=== PATIENT | male | born 1940 | race Caucasian/White ===

== ENCOUNTER 2016-04-25 18:51 | Observation (INO) ==
--- NOTE | 2016-04-25 19:39 | Emergency Department Note ---
Disposition Clinical Impression: Cerebrovascular accident Qualifiers: CVA mechanism: other Qualified Code(s): I63.8 - Other cerebral infarction Disposition: Admitted As Inpatient Condition: Good Forms: ED Satisfaction Letter Neuro HPI - General Chief Complaint: ED Neuro Symptoms/Deficit Stated Complaint: Neuro symptoms Time Seen by Provider: 04/25/16 18:58 Source: patient, family Limitations: no limitations Nursing Notes Reviewed: Yes Vital Signs Reviewed: Yes - History of Present Illness HPI Narrative: Patient returns for reevaluation after visit yesterday. states that yesterday morning he woke up with slurred speech and facial droop and falling to the left side. She states it will not morning so she brought him to the emergency department around 2 PM yesterday. She states that he was worked up and the attending physician offered admission at that time but he declined stating that he like to go home. She brings him back again today due to his symptoms continuing. She states that she feels that he falls to one side and so trouble with ambulation. She also feels that his mental status appears to be unusual per her report. There is no prior history of similar symptoms prior to this past few days. She does note that about 3-4 days prior to developing a facial droop he had some dizziness. There was no primary care physician follow- up for these symptoms. - Related Data Home Medications: Home Medications Medication Instructions Recorded Confirmed Amlodipine Besylate 2.5 mg PO DAILY 07/18/15 07/18/15 Aspirin 325 mg PO DAILY 07/18/15 07/18/15 Atorvastatin [Lipitor] 80 mg PO HS 07/18/15 07/18/15 Carbidopa/Levodopa 25/100 [Sinemet 0.5 each PO QID 07/18/15 07/18/15 25/100] Carvedilol [Coreg] 12.5 mg PO BID 07/18/15 07/18/15 Cholecalciferol (Vitamin D3) 2,000 unit PO DAILY 07/18/15 07/18/15 [Vitamin D3] Clopidogrel Bisulfate [Plavix] 75 mg PO DAILY 07/18/15 07/18/15 Furosemide [Lasix] 40 mg PO QAM 07/18/15 07/18/15 GuaiFENesin Liq [Robitussin Liq] 200 mg PO Q6HR PRN 07/18/15 07/18/15 Insulin Glargine [Lantus] 30 unit SQ QAM AND QHS 07/18/15 07/18/15 Lisinopril [Zestril] 5 mg PO DAILY 07/18/15 07/18/15 Potassium Chloride [Y] 10 meq PO QAM 07/18/15 07/18/15 Tamsulosin HCl [Flomax] 0.4 mg PO DAILY 07/18/15 07/18/15 Trihexyphenidyl [Artane] 07/18/15 Previous Rx's Medication Instructions Recorded Isosorbide MONOnitrate (24 HR) 240 mg PO DAILY #30 tab.er.24h 07/20/15 [Imdur] Allergies/Adverse Reactions: Allergies Allergy/AdvReac Type Severity Reaction Status Date / Time bupropion Allergy See Verified 07/18/15 22:27 Comments finasteride Allergy See Verified 07/18/15 22:27 Comments morphine Allergy See Verified 07/18/15 22:27 Comments oxybutynin Allergy See Verified 07/18/15 22:27 Comments Terazosin Allergy See Verified 07/18/15 22:27 Comments tramadol Allergy See Verified 07/18/15 22:27 Comments All systems ED: reviewed and negative except as stated. Past Medical History - Past Medical History Source: patient, obtained from family Medical history: Reports: CHF, COPD, coronary artery disease, diabetes, GERD, hyperlipidemia, hypertension, myocardial infarction, renal disease, TIA Surgical history: Reports: coronary bypass (CABG) Psychiatric history: Reports: no psych history - Social History Smoking Status: Never smoker Smokeless Tobacco Status: No Alcohol use: Reports: none Drug use: Reports: none Physical Exam - General Limitations: no limitations General appearance: alert - Head Head exam: atraumatic, normocephalic, normal inspection - Eye Eye exam: Present: normal appearance, PERRL, EOMI - ENT ENT exam: normal exam, normal oropharynx, mucous membranes moist - Neck Neck exam: Present: normal inspection, full ROM, trachea midline - Chest Chest inspection: Present: normal inspection, symmetric chest wall rise - Respiratory Respiratory exam: Present: normal lung sounds bilaterally - Cardiovascular Cardiovascular exam: Present: regular rate, normal rhythm, normal heart sounds - Abdominal Exam Abdominal exam: Present: soft, Non-Tender. Absent: tenderness, distention, guarding, rebound, rigidity - Extremities Exam Extremities exam: Present: normal inspection, full ROM. Absent: tenderness, pedal edema - Neurological Exam Neurological exam: Present: alert, oriented X3, other (Decreased sensation in the distribution of V1 V2 and V3 on the left side. Decreased sensation and spinal nerves related to C5 ) - Psychiatric Psychiatric exam: Present: normal affect, normal mood - Skin Skin exam: Present: warm, dry, intact, normal color Course Vital Signs Temperature 97.7 F 04/25/16 18:52 Pulse Rate 48 04/25/16 18:52 Respiratory Rate 18 04/25/16 18:52 Blood Pressure 151/61 04/25/16 18:52 O2 Sat by Pulse Oximetry 98 04/25/16 18:52 Temperature 97.7 F 04/25/16 18:52 Pulse Rate 72 04/25/16 20:16 Respiratory Rate 22 04/25/16 19:29 Blood Pressure 122/74 04/25/16 20:16 O2 Sat by Pulse Oximetry 97 04/25/16 20:16 Oxygen Delivery Oxygen Delivery Room Air Neuro Symptoms/Deficit - Differential Diagnosis Likely: cerebrovascular accident, subarachnoid hemorrhage, transient cerebral ischemia, convulsions - Lab Data Lab results reviewed: Yes I reviewed the patient's lab results. Result diagrams: 04/25/16 19:56 04/25/16 19:56 Lab Results 04/25/16 04/25/16 04/25/16 Range/Units 19:56 19:56 19:56 WBC 6.8 (4.3-11.1) K/mcL RBC 4.61 (4.19-5.50) M/mcL Hgb 13.5 (12.9-16.9) g/dL Hct 42.3 (37.5-50.1) % MCV 91.8 (83.0-100.0) fL MCH 29.3 (28.0-33.3) pg MCHC 31.9 (31.6-35.5) g/dL RDW 13.8 (11.5-14.5) % Plt Count 113 L (140-400) K/mcL MPV 11.3 (9.4-12.4) fL Immature Gran % 0.3 (0-4) % Seg Neutrophils % 64.9 % Lymphocytes % 22.3 % Monocytes % 8.7 % Eosinophils % 3.5 % Basophils % 0.3 % Neutrophils # 4.4 (1.6-8.9) K/mcL Lymphocytes # 1.5 (0.6-4.6) K/mcL Monocytes # 0.6 (0.0-1.3) K/mcL Eosinophils # 0.2 (0.0-0.6) K/mcL Basophils # 0.0 (0.0-0.2) K/mcL Sodium 139 (136-145) mEq/L Potassium 4.5 (3.5-4.5) mEq/L Chloride 108 (98-109) mEq/L Carbon Dioxide 23 (19-29) mEq/L BUN 29 H (8-26) mg/dL Creatinine 1.48 H (0.72-1.25) mg/dL Est GFR ( Amer) 56 L (> 60) Est GFR (Non-Af Amer) 47 L (> 60) BUN/Creatinine Ratio 20 (6-26) Glucose 258 H (70-99) mg/dL Calculated Osmolality 303 H (280-300) Calcium 8.5 L (8.6-10.8) mg/dL Total Bilirubin 0.5 (0.2-1.2) mg/dL AST 11 (5-34) Units/L ALT 13 (0-55) Units/L Alkaline Phosphatase 109 (38-126) Units/L Troponin I 0.01 (0-0.03) ng/mL Serum Total Protein 6.6 (6.0-8.3) g/dL Albumin 3.5 (3.5-5.0) g/dL Globulin 3.1 (2.4-3.5) g/dL Albumin/Globulin Ratio 1.1 (1.1-2.2) TPA Checklist - LKW: 3-4.5 hrs Add. Contraindications Patient/family understanding: The patient/family members have been counseled and understood the risk, benefit , and alternatives of treatment. Critical Care Time Total Critical Care Time: 30 Attestation: Critical care performed: Time is exclusive of separately billable procedures. Time includes: direct patient care, patient reassessment, coordination of patient care, interpretation of data (laboratory data, radiology data, and respiratory data), review of patient's medical records, medical consultation and documentation of patient care. Procedures included in critical care time: Procedures excluded from critical care time:
[2016-04-25 20:02] LABS: Basophils % 0.3 %; Eosinophils # 0.2 K/mcL (0.0-0.6); Eosinophils % 3.5 %; Hematocrit 42.3 % (37.5-50.1); Hemoglobin 13.5 g/dL (12.9-16.9); Immature Granulocytes % 0.3 % (0-4); Lymphocytes # 1.5 K/mcL (0.6-4.6); Lymphocytes % 22.3 %; Mean Corpuscular HGB Conc 31.9 g/dL (31.6-35.5); Mean Corpuscular Hemoglobin 29.3 pg (28.0-33.3); Mean Corpuscular Volume 91.8 fL (83.0-100.0); Mean Platelet Volume 11.3 fL (9.4-12.4); Monocytes # 0.6 K/mcL (0.0-1.3); Monocytes % 8.7 %; Neutrophils # 4.4 K/mcL (1.6-8.9); Platelet Count 113 K/mcL (140-400); Red Blood Count 4.61 M/mcL (4.19-5.50); Red Cell Distribution Width 13.8 % (11.5-14.5); Segmented Neutrophils % 64.9 %
[2016-04-25 20:17] LABS: Albumin 3.5 g/dL (3.5-5.0); Albumin/Globulin Ratio 1.1 (1.1-2.2); Bilirubin,Total 0.5 mg/dL (0.2-1.2); Calcium 8.5 mg/dL (8.6-10.8); Globulin 3.1 g/dL (2.4-3.5); Potassium 4.5 mEq/L (3.5-4.5); Total Protein 6.6 g/dL (6.0-8.3)
[2016-04-25] MEDS ORDERED: Naloxone 0.4 MG/ML INJ IVP PRN (20:25)
[2016-04-25] MEDS ORDERED: Ondansetron 4 MG/2 ML VIAL IVP PRN (20:25)
[2016-04-25] MEDS ORDERED: Acetaminophen 325 MG TABLET PO PRN (20:25)
--- NOTE | 2016-04-25 20:34 | Internal Med History&Physical ---
Date of Encounter: 04/25/16 Time of Encounter: 20:29 Assessment and Plan (1) TIA (transient ischemic attack) Current visit: No Status: Acute Two episodes, currently back to baseline neuro status. He has difficulty explaining things, but his states this is at baseline. - MRI tomorrow - plan for open MRI if available - in not available will need anxiolytic medications - Neurology consulted - Carotids - TTE Qualifiers: Transient cerebral ischemia type: unspecified Qualified Code(s): G45.9 - Transient cerebral ischemic attack, unspecified (2) CAD (coronary artery disease) Current visit: Yes Status: Acute Patient denies chest pain. - Continue home cards meds - Telemetry Qualifiers: Coronary Disease-Associated Artery/Lesion type: [place] artery [place] vs. transplanted heart: [place] heart Associated angina: without angina Qualified Code(s): I25.10 - Atherosclerotic heart disease of [place] coronary artery without angina pectoris (3) HTN (hypertension) Current visit: No Status: Chronic BP stable. - Continue home meds Qualifiers: Hypertension type: essential hypertension Qualified Code(s): I10 - Essential (primary) hypertension (4) COPD (chronic obstructive pulmonary disease) Current visit: No Status: Chronic Breathing at baseline - Continue home meds Qualifiers: COPD type: emphysema Emphysema type: unspecified Qualified Code(s): J43.9 - Emphysema, unspecified (5) Diabetes Current visit: No Status: Chronic Continue home lantus - Add SSI Qualifiers: Diabetes mellitus type: type 2 Diabetes mellitus complication status: with unspecified complications Diabetes mellitus ferry terminal agent insulin use: unspecified ferry terminal agent insulin use status Qualified Code(s): E11.8 - Type 2 diabetes mellitus with unspecified complications (6) CKD (chronic kidney disease) Current visit: No Status: Chronic Creatinine at baseline - Avoid nephrotoxins Qualifiers: Chronic kidney disease stage: unspecified stage Qualified Code(s): N18.9 - Chronic kidney disease, unspecified Internal Medicine - H&P: HPI Chief complaint: Slurred speech, left sided weakness Admitted From: Emergency Dept Plans for Post Hospital Care: Home History of present illness: Mr. Monzon is a 75 year old male with history of CAD, systolic CHF, Parkinson' s disease, who presented to the ER this evening because of slurred speech and patient slumping to the left while sitting. His is present and provides much of the history, as the patient suffers from some degree of dementia which has not acutely worsened. She states that yesterday around noon he developed slurred speech and slumped to the side while sitting. The symptoms lasted 30 minutes and then completely resolved. He was brought to the ER for evaluation and it was recommended that he stay in the hospital and receive further stroke workup, however the patient refused admission and went home with his . Today around 1600 he again developed slurred speech and slumped to the left side in the car, but his symptoms resolved after a couple of minutes this time. He was worried and asked his to bring him back to the ER for further evaluation. He denies chest pain or shortness of breath. He has not had fever or chills. He states that his left knee hurts chronically, which makes that leg a little weaker than the right. He has history of severe PTSD from [place] and states that he can only have an MRI if it is an "open" MRI. Past Med Surg Social Fam HX - Past Medical History Medical history: CHF (EF 45% 07/2015), COPD, coronary artery disease, diabetes, GERD, hyperlipidemia, hypertension, myocardial infarction, renal disease, TIA, other (Parkinson's disease) Psychiatric history: PTSD - Past Surgical History Surgical History: coronary bypass (CABG) - Social History Smoking Status: Never smoker Smokeless Tobacco Status: No Alcohol use: none Drug use: none - Family History Mother Family Member Ethnicity: Non- Living Status: Hx Family Cardiac Disorders: No Hx Family Respiratory Disorders: No Hx Family Cancer: Yes Hx Family GI Disorders: Yes Hx Family Endocrine Disorder: No Hx Family Neuromuscular Disorders: No Hx Family Neurologic Disorders: No Hx Family HEENT Disorders: No Hx Family Autoimmune Disorders: No Internal Medicine - H&P: Meds Amlodipine Besylate 2.5 mg PO DAILY 07/18/15 [History] Aspirin 325 mg PO DAILY 07/18/15 [History] Atorvastatin [Lipitor] 80 mg PO HS 07/18/15 [History] Carbidopa/Levodopa 25/100 [Sinemet 25/100] 0.5 each PO QID 07/18/15 [History] Carvedilol [Coreg] 12.5 mg PO BID 07/18/15 [History] Cholecalciferol (Vitamin D3) [Vitamin D3] 2,000 unit PO DAILY 07/18/15 [History] Clopidogrel Bisulfate [Plavix] 75 mg PO DAILY 07/18/15 [History] Furosemide [Lasix] 40 mg PO QAM 07/18/15 [History] GuaiFENesin Liq [Robitussin Liq] 200 mg PO Q6HR PRN 07/18/15 [History] Insulin Glargine [Lantus] 30 unit SQ QAM AND QHS 07/18/15 [History] Lisinopril [Zestril] 5 mg PO DAILY 07/18/15 [History] Potassium Chloride [Y] 10 meq PO QAM 07/18/15 [History] Tamsulosin HCl [Flomax] 0.4 mg PO DAILY 07/18/15 [History] Trihexyphenidyl [Artane] 07/18/15 [History] Isosorbide MONOnitrate (24 HR) [Imdur] 240 mg PO DAILY #30 tab.er.24h 07/20/15 [ Rx] Allergies bupropion Allergy (Verified 07/18/15 22:27) See Comments finasteride Allergy (Verified 07/18/15 22:27) See Comments morphine Allergy (Verified 07/18/15 22:27) See Comments oxybutynin Allergy (Verified 07/18/15 22:27) See Comments Terazosin Allergy (Verified 07/18/15 22:27) See Comments tramadol Allergy (Verified 07/18/15 22:27) See Comments All Systems PM: A 10-system review of systems was performed and is negative for pertinent findings except as documented above in the HPI. - Constitutional Vitals: Temp Pulse Resp BP Pulse Ox 97.7 F 72 22 122/74 97 04/25/16 18:52 04/25/16 20:16 04/25/16 19:29 04/25/16 20:16 04/25/16 20:16 General appearance: Present: A&O X 3 Exam: Patient in no acute distress, resting comfortably in bed. - Head Head exam: Present: atraumatic - Eye Eye exam: Present: EOMI, sclera anicteric - ENT ENT exam: Present: mucous membranes moist - Neck Neck exam general surgery: Present: supple - Respiratory Respiratory exam: Present: CTAB - Cardiovascular Cardiovascular exam: Present: RRR. Absent: diastolic murmur, gallop, rubs, systolic murmur - GI/Abdominal GI/Abdominal exam: Present: normal bowel sounds, soft. Absent: distended, tenderness - Extremities Exam Extremities exam: Present: pedal edema Additional comments: trace lower extremity edema bilaterally - Neurological Exam Neurological exam: Present: CN II-XII intact Additional comments: Left lower extremity with 4/5 strength to lift off bed, however patient complains of knee pain which limits his ability to lift his leg. 5/5 plantar extension and flexion. Right lower extremity with 5/5 strength throughout. Left extremities with 5/5 strength bilaterally. - Expanded Neurological Exam Patient oriented to: Present: person, place, time Speech: Absent: slurred - Psychiatric Psychiatric exam: Present: flat affect - Skin Skin exam: Absent: rash Internal Med - H&P Results - Labs CBC & Chem 7: 04/25/16 19:56 04/25/16 19:56 Labs: Short CBC 04/25/16 Range/Units 19:56 WBC 6.8 (4.3-11.1) K/mcL Hgb 13.5 (12.9-16.9) g/dL Hct 42.3 (37.5-50.1) % Plt Count 113 L (140-400) K/mcL Neutrophils # 4.4 (1.6-8.9) K/mcL BMP 04/25/16 19:56 Sodium 139 Potassium 4.5 Chloride 108 Carbon Dioxide 23 BUN 29 H Creatinine 1.48 H Glucose 258 H Calcium 8.5 L Cardiac Enzymes 04/25/16 Range/Units 19:56 Troponin I 0.01 (0-0.03) ng/mL Liver Function 04/25/16 Range/Units 19:56 Total Bilirubin 0.5 (0.2-1.2) mg/dL AST 11 (5-34) Units/L ALT 13 (0-55) Units/L Alkaline Phosphatase 109 (38-126) Units/L Albumin 3.5 (3.5-5.0) g/dL
[2016-04-25] MEDS ORDERED: D5% in Water 1,000 ML IV PRN (20:45)
[2016-04-25] MEDS ORDERED: Dextrose Gel 15 GM PO PRN ×2 (20:45)
[2016-04-25] MEDS ORDERED: *HR* Dextrose 50 % in Water (Syg) 50 ML SYRINGE IVP PRN (20:45)
[2016-04-25] MEDS: Insulin LISPRO 300 UNITS/3 ML VIAL SQ SCH (23:24)
[2016-04-26 06:11] LABS: Hematocrit 43.7 % (37.5-50.1); Hemoglobin 14.1 g/dL (12.9-16.9); Mean Corpuscular HGB Conc 32.3 g/dL (31.6-35.5); Mean Corpuscular Hemoglobin 29.6 pg (28.0-33.3); Mean Corpuscular Volume 91.6 fL (83.0-100.0); Mean Platelet Volume 11.9 fL (9.4-12.4); Platelet Count 114 K/mcL (140-400); Red Blood Count 4.77 M/mcL (4.19-5.50); Red Cell Distribution Width 13.9 % (11.5-14.5)
[2016-04-26 06:28] LABS: BUN/Creatinine Ratio 21 (6-26); Blood Urea Nitrogen 24 mg/dL (8-26); Calcium 8.4 mg/dL (8.6-10.8); Carbon Dioxide 23 mEq/L (19-29); Chloride 109 mEq/L (98-109); Glucose 176 mg/dL (70-99); Osmolality,Calculated 298 (280-300); Potassium 3.9 mEq/L (3.5-4.5); Sodium 140 mEq/L (136-145); eGFR For African Americans > 60 (> 60); eGFR For Non-African Americans > 60 (> 60)
[2016-04-26] MEDS: Aspirin 325 MG TABLET PO SCH (08:08)
[2016-04-26] MEDS: Cholecalciferol (D-3) 1,000 UNIT TABLET PO SCH (08:08)
[2016-04-26] MEDS: amLODIPine 5 MG TABLET PO SCH (08:09)
[2016-04-26] MEDS: Insulin LISPRO 300 UNITS/3 ML VIAL SQ SCH ×4 (08:11→21:33)
[2016-04-26] MEDS: Furosemide 40 MG TABLET PO SCH (08:11)
[2016-04-26] MEDS ORDERED: *HR* LORazepam 2 MG/ML VIAL IVP ONE ×2 (09:21→14:34)
[2016-04-26] MEDS ORDERED: *HR* LORazepam 1 MG TABLET PO ONE (09:31)
[2016-04-26] MEDS ORDERED: *HR* LORazepam 2 MG/ML VIAL IVP STA (10:33)
--- NOTE | 2016-04-26 12:37 | Electrocardiograph Report ---
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
--- NOTE | 2016-04-26 13:10 | Electrocardiograph Report ---
[place] [address] Test Date: 2016-04-25 Pat Name: Sukhjinder Monzon Department: 103 Room: 3B Gender: M Learning Design Specialist: : 1940 Requested By: Shanda Jurado Order Number: [id number] Reading MD: Rodo Snell Measurements Intervals [place] Rate: 72 P: -46 SD: 216 QRS: -2 QRSD: 110 T: 41 QT: 385 QTc: 410 Interpretive Statements SINUS RHYTHM WITH FIRST DEGREE AV BLOCK WITH FREQUENT VENTRICULAR PREMATURE COMPLEXES INFERIOR MYOCARDIAL INFARCTION, PROBABLY OLD Electronically Signed On 04-26-2016 13:09:17 EDT by Rodo Snell
--- NOTE | 2016-04-26 15:12 | Neurology - Consult Note ---
Date of Encounter: 04/19/16 Time of Encounter: 15:04 Assessment and Plan (1) TIA (transient ischemic attack) Current Visit: No Status: Acute Patient's MR of brain showed no acute intracranial abnormality. Still agitated without an focal neurological deficits. Overall speaking, symptoms are more related to diffuse encephalopathy secondary to medical conditions such as renal insufficiency, dehydration and hyperglycemia on top of neurodegenerative disorder. he does have past history of Parkinson's disease. Renal function appears improving but mental status change may lag in terms of recovery. Complete TIA work up including echocardiography and carotid artery duplex. Rrecommend to contiue aspirin 325mg and plavix 75mg daily continue medical and supportive care. Qualifiers: Transient cerebral ischemia type: unspecified Qualified Code(s): G45.9 - Transient cerebral ischemic attack, unspecified History of Present Illness Chief complaint: weakness and faci HPI: Mr. Monzon is a 75 year old male with PMH significant for Parkinson disease, DM , CAD, ischemic cardiomyopathy, COPD, Dementia, renal insufficiency, obesity, who developed altered mental status, agitation, weakness and facial droop. Apparently he was evaluated in the ER for similar complaints and was send home and symptoms not getting better and found some facial droop and concerned for CVA. MR of brain completed and showed no acute intracranial abnormality. Patient has been agitated as well and tries to get up constantly. No focal weakness seen. Hand roll over loader are strong. Been taking aspirin 325 mg daily and plavix 75mg daily. Has history of atrial flutter but no evidence of aFib. Past Med Surg Social Fam HX - Past Medical History Medical history: CHF, COPD, coronary artery disease, diabetes, GERD, hyperlipidemia, hypertension, myocardial infarction, renal disease, TIA Psychiatric history: no psych history - Past Surgical History Surgical History: appendectomy, coronary bypass (CABG) - Social History Smoking Status: Never smoker Smokeless Tobacco Status: No Alcohol use: none Drug use: none - Family History Father Living Status: Hx Family Cardiac Disorders: Yes (DC) Mother Family Member Ethnicity: Non- Living Status: Hx Family Cardiac Disorders: No Hx Family Respiratory Disorders: No Hx Family Cancer: Yes (uterine) Hx Family GI Disorders: Yes (GERD) Hx Family Endocrine Disorder: No Hx Family Neuromuscular Disorders: No Hx Family Neurologic Disorders: No Hx Family HEENT Disorders: No Hx Family Autoimmune Disorders: No Medications and Allergies Amlodipine Besylate 2.5 mg PO DAILY 07/18/15 [History] Aspirin 325 mg PO DAILY 07/18/15 [History] Atorvastatin [Lipitor] 80 mg PO HS 07/18/15 [History] Carbidopa/Levodopa 25/100 [Sinemet 25/100] 0.5 each PO QID 07/18/15 [History] Carvedilol [Coreg] 12.5 mg PO BID 07/18/15 [History] Cholecalciferol (Vitamin D3) [Vitamin D3] 2,000 unit PO DAILY 07/18/15 [History] Clopidogrel Bisulfate [Plavix] 75 mg PO DAILY 07/18/15 [History] Furosemide [Lasix] 40 mg PO QAM 07/18/15 [History] Lisinopril [Zestril] 5 mg PO DAILY 07/18/15 [History] Potassium Chloride [Y] 10 meq PO QAM 07/18/15 [History] Tamsulosin HCl [Flomax] 0.4 mg PO DAILY 07/18/15 [History] Trihexyphenidyl [Artane] PO 07/18/15 [History] Isosorbide MONOnitrate (24 HR) [Imdur] 240 mg PO DAILY #30 tab.er.24h 07/20/15 [ Rx] Acetaminophen [Tylenol Arthritis] 650 mg PO Q6H PRN 04/26/16 [History] Loratadine [Allergy Relief] 10 mg PO DAILY 04/26/16 [History] Psyllium [Metamucil Fiber Singles Packet] 1 packet PO DAILY 04/26/16 [History] Saxagliptin HCl [Onglyza] 2.5 mg PO DAILY 04/26/16 [History] Trihexyphenidyl [Artane] 3 mg PO QAM 04/26/16 [History] Allergies bupropion Allergy (Verified 07/18/15 22:27) See Comments finasteride Allergy (Verified 07/18/15 22:27) See Comments morphine Allergy (Verified 07/18/15 22:27) See Comments oxybutynin Allergy (Verified 07/18/15 22:27) See Comments Terazosin Allergy (Verified 07/18/15 22:27) See Comments tramadol Allergy (Verified 07/18/15 22:27) See Comments All Systems: A 10-system review of systems was performed and is negative for pertinent findings except as documented above in the HPI. Physical Examination - Vital Signs Vital Signs: Initial Vital Signs Temp Pulse Resp BP Pulse Ox 97.7 F 48 18 151/61 98 04/25/16 18:52 04/25/16 18:52 04/25/16 18:52 04/25/16 18:52 04/25/16 18:52 - Constitutional General appearance: other (Acute distress but appears agitated and tries to get constantly. ) - Neurologic Sensorimotor examination: other (Grossly intact but difficult to assess due to agitation) Detailed motor examination: grossly full strength in all extremities Motor examination - right side: 5/5: deltoids, biceps, triceps, wrist flexion, wrist extension, documentation analyst, hip flexors, tibialis Anterior, quadriceps, toe extension (EHL), plantarflexion Motor examination - left side: 5/5: deltoids, biceps, triceps, wrist flexion, wrist extension, hip flexors, documentation analyst, quadriceps, tibialis Anterior, toe extension (EHL), plantarflexion Detailed sensory examination: other (Grossly intact) Posture: other (None) Reflex and gait examination: other (Gait appears shuffling and unsteady) Reflexes: Biceps: 2+, Triceps: 2+, Brachioradialis: 2+, Patella: 2+ Mental Status Examination: awake, alert, oriented to person, agitated, opens eyes to voice, opens eyes to noxious stimulation, follows simple commands ( Patient agitated but answers simple questions. Tried to get up constantly) Cranial nerve examination: PERRL, EOMI, visual hood intact (Difficulty to assess), corneal reflexes brisk symmetrically, mastication intact, no facial asymmetry is present, no dysarthria, hearing is intact symmetrically, soft palate elevates bilaterally upon phonation (Difficult to assess) Results - Laboratory Findings CBC and BMP: 04/26/16 04:42 04/26/16 04:42 Abnormal lab findings: Abnormal lab results Plt Count 114 K/mcL (140-400) L 04/26/16 04:42 Glucose 176 mg/dL (70-99) H 04/26/16 04:42 POC Glucose 179 (58-89) H 04/26/16 12:56 Calcium 8.4 mg/dL (8.6-10.8) L 04/26/16 04:42 Consult Discharge Plan - Plan [facility]errals: [facility]Primary Care Provider[facility] -
[2016-04-26] MEDS ORDERED: Haloperidol Lactate 5 MG/ML VIAL IVP PRN (15:48)
--- NOTE | 2016-04-26 17:50 | Internal Med Progress Note ---
Date of Encounter: 04/26/16 Time of Encounter: 07:30 - Assessment and plan (1) TIA (transient ischemic attack) Current Visit: No Status: Acute Assessment and plan: Patient was brought to the emergency department twice in the last 48 hours. On the first visit is stated that he woke up with slurred speech and facial droop and was falling to the left side. Symptoms had been present for about 6 hours by the time they made it to the emergency department area patient left the department AMA because he wanted to go home. He returned to the emergency department yesterday due to continuing symptoms. She feels that he falls to one side and is having trouble walking. She also said that the mental status appears to be unusual. He does have dementia. His MRI of brain and head showed no acute intracranial abnormality but it did show diffuse cerebral atrophy. The ventricles are slightly prominent relative to the sulci. Patient does not appear to have any neurological deficits such as weakness on one side or the other, slurred speech, ataxia, however he does appear to have mental status change. He has been cursing, refusing treatment, refusing to wear his monitor leads, ripping out his IV, and saying he is going to leave and walk down the middle of the highway. He did refuse his echocardiogram and carotid Dopplers. We will try to get him calmed down and labs with normal limits and attempt the testing again tomorrow. Patient was seen by Dr. Pino today and he recommends continuing 325 mg aspirin and 75 mg Plavix and continue medical and supportive care. 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 Creatinine within normal limits. We will continue to monitor labs. Avoid nephrotoxins. Qualifiers: Chronic kidney disease stage: stage 3 (moderate) Qualified Code(s): N18.3 - Chronic kidney disease, stage 3 (moderate) (3) HTN (hypertension) Current Visit: No Status: Chronic Assessment and plan: Chronic. Will continue home medications. It has been difficult to obtain vital signs today due to patient's confusion and refusals. Qualifiers: Hypertension type: essential hypertension Qualified Code(s): I10 - Essential (primary) hypertension (4) COPD (chronic obstructive pulmonary disease) Current Visit: No Status: Chronic Assessment and plan: Chronic and well controlled. Continue home medications Monitor vital signs and labs Qualifiers: COPD type: emphysema Emphysema type: unspecified Qualified Code(s): J43.9 - Emphysema, unspecified (5) Diabetes Current Visit: No Status: Chronic Assessment and plan: Chronic Continue sliding scale insulin Diabetic diet He checks before meals at bedtime Hold home antidiabetic medications A1c ordered for morning Qualifiers: Diabetes mellitus type: type 2 Diabetes mellitus complication status: with unspecified complications Diabetes mellitus shelter insulin use: unspecified shelter insulin use status Qualified Code(s): E11.8 - Type 2 diabetes mellitus with unspecified complications - Time Spent With Patient 25 - 35 minutes - Subjective Interval history: Patient visited the emergency department twice within 24 hours for slurred speech facial droop leading to the left side. Today patient appears to have some sort of encephalopathy, or worsening dementia. Patient has been cursing, refusing all kinds of care, attempting to get out of bed and wheelchair etc. saying he is going to leave. Early this morning patient told me that he was irritated because he got no sleep during the night because of all the kids in the hallway. He said that he would like to grab him by the throats and hold them until they and drop them. He told me that he was not going to get an MRI and I could take it all those people and all the coats and suits. He is alert and oriented to his name only and could not answer the year or who the president was. Did speak with his history he is a [place] that and will need a lot of sedation for a CAT scan or MRI. Patient does complete MRI, however staff has struggled with him today as he has been pulling out IVs and refusing echo and carotid Dopplers. - Constitutional Vitals: Temp Pulse Resp BP Pulse Ox 97.8 F 48 16 151/57 98 04/26/16 12:13 04/26/16 12:13 04/26/16 12:13 04/26/16 12:13 04/26/16 12:13 General appearance: Present: A&O X 2. Absent: cooperative, answers questions appropriately - Head Head exam: Present: normal inspection - Eye Eye exam: Present: normal appearance, conjuntiva pink - ENT ENT exam: Present: mucous membranes moist, normal exam - Neck Neck exam general surgery: Present: normal inspection. Absent: lymphadenopathy , tenderness - Respiratory Respiratory exam: Present: CTAB. Absent: chest wall tenderness, rales, rhonchi , stridor, wheezes - Cardiovascular Cardiovascular exam: Present: RRR, +S1, +S2 - Expanded Cardiovascular Exam Peripheral pulses: 1+: Dorsalis Pedis (L) PM, Dorsalis Pedis (R) PM - GI/Abdominal GI/Abdominal exam: Present: hypoactive bowel sounds, soft. Absent: tenderness - Extremities Exam Extremities exam: Present: normal inspection, warm, radial pulses palpable and symetrical. Absent: pedal edema, tenderness - Psychiatric Psychiatric exam: Present: agitated, anxious Internal Medicine: Result - Labs CBC & Chem 7: 04/26/16 04:42 04/26/16 04:42 Labs: Short CBC 04/26/16 Range/Units 04:42 WBC 7.6 (4.3-11.1) K/mcL Hgb 14.1 (12.9-16.9) g/dL Hct 43.7 (37.5-50.1) % Plt Count 114 L (140-400) K/mcL BMP 04/26/16 04:42 Sodium 140 Potassium 3.9 Chloride 109 Carbon Dioxide 23 BUN 24 Creatinine 1.17 Glucose 176 H Calcium 8.4 L - Impressions Impressions Brain MRI 04/26/16 10:18 IMPRESSION: No acute intracranial abnormality. Diffuse cerebral atrophy. The ventricles are slightly prominent relative to the sulci. Normal pressure hydrocephalus should be excluded on a clinical basis. D/ / 04/26/2016 11:48:46 Brigid Mulligan MD / melissa Interpreting Provider: Brigid Mulligan MD Consult Discharge Plan - Plan [facility]: [facility] [Primary Care Provider[facility] -
[2016-04-27 06:21] LABS: Basophils % 0.2 %; Eosinophils # 0.2 K/mcL (0.0-0.6); Eosinophils % 2.3 %; Hematocrit 48.3 % (37.5-50.1); Immature Granulocytes % 0.2 % (0-4); Lymphocytes # 1.4 K/mcL (0.6-4.6); Mean Corpuscular HGB Conc 32.7 g/dL (31.6-35.5); Mean Corpuscular Hemoglobin 29.3 pg (28.0-33.3); Mean Corpuscular Volume 89.6 fL (83.0-100.0); Mean Platelet Volume 11.5 fL (9.4-12.4); Monocytes # 0.7 K/mcL (0.0-1.3); Monocytes % 7.1 %; Neutrophils # 7.2 K/mcL (1.6-8.9); Platelet Count 131 K/mcL (140-400); Red Blood Count 5.39 M/mcL (4.19-5.50); Red Cell Distribution Width 13.8 % (11.5-14.5); Segmented Neutrophils % 75.2 %
[2016-04-27 06:23] LABS: Hemoglobin 15.8 g/dL (12.9-16.9)
[2016-04-27 06:33] LABS: Hemoglobin A1C 9.8 %
[2016-04-27 06:34] LABS: BUN/Creatinine Ratio 17 (6-26); Blood Urea Nitrogen 21 mg/dL (8-26); Calcium 8.9 mg/dL (8.6-10.8); Carbon Dioxide 25 mEq/L (19-29); Chloride 108 mEq/L (98-109); Glucose 177 mg/dL (70-99); Osmolality,Calculated 301 (280-300); Potassium 4.5 mEq/L (3.5-4.5); Sodium 142 mEq/L (136-145); eGFR For African Americans > 60 (> 60); eGFR For Non-African Americans 56 (> 60)
[2016-04-27 08:09] VITALS: BP 168/80
[2016-04-27] MEDS ORDERED: 0.9 % Sodium Chloride 1,000 ML IVC SCH (08:45)
--- NOTE | 2016-04-27 09:00 | ECHO - Doppler Report ---
Echo with Saline Contrast Name: Sukhjinder Monzon Date of Study: 04/26/2016 Date: 1940 Ht: 69.0 in Medical Record#: [id number] Age: 75 Wt: 189.0 lb Gender: Male BSA: 2.02 Order #: [id number] Location: [facility] Room #: 3B Reading Physician: Danitza Linn DO [facility] Nurse Practitioner: Gisell Guardado RVT, [facility] Ordering Physician: Taylor Allen MD Primary Physician: [facility] Indications: Transient Ischemic Attack Impressions: Frequent PVCs. LVEF 50-55%. There is evidence of mild diastolic dysfunction of the left ventricle. Mild-moderate increased LV wall thickness. Normal right ventricular size and function. Mild-moderate mitral regurgitation. Mild tricuspid regurgitation. Mild pulmonic regurgitation. No pulmonary hypertension. Suboptimal image quality to detect PFO with saline bubble study. Left Ventricular Wall Motion: Rest Echo Findings All wall segments showed normal motion. Findings: Study Quality * Technically sub-optimal due to clinical status. ECG Findings * Normal sinus rhythm with PVCs. Left Ventricle * Mild-moderate concentric left ventricular hypertrophy. * Mild left ventricular diastolic dysfunction. * LVEF 50-55%. * Atypical septal motion. Left Atrium * Mildly dilated left atrium. Mitral Valve * No mitral stenosis. * Mildly thickened and calcified mitral valve leaflets. * Mild-moderate mitral regurgitation. Aorta * Normally sized aortic root. Aortic Valve * Trace aortic regurgitation. * Aortic valve not well visualized. * Mild-moderate calcified aortic valve leaflets. * No aortic stenosis. Tricuspid Valve * Tricuspid valve not well visualized. * Mild tricuspid regurgitation. Pulmonic Valve * Pulmonic valve is not well visualized. * No pulmonic stenosis. * Mild pulmonic regurgitation. Pulmonary Artery * Pulmonary artery not well visualized. Right Ventricle * Normal right ventricular structure and function. Right Atrium * Normal right atrial size. Interatrial Septum * Interatrial septum not well evaluated. Pericardium * There is no pericardial effusion present. IVC * The IVC is not well evaluated. History Hypertension Diabetes Hypercholesteremia History of CAD/PTCA Myocardial Infarction Congestive Heart Failure 07-19-2015 a Previous Echo was performed. Contrast: Agitated saline 20 ml. Measurements: BP: 151/ 57 2D Normal Values IVSd: 1.40 cm 0.6 - 1.0 cm LVIDd: 4.90 cm 3.7 - 5.6 cm LVPWd: 1.50 cm 0.6 - 1.1 cm LVIDs: 3.50 cm 1.5 - 3.6 cm AO: 2.50 cm < 4.0 cm LA: 4.00 cm 2.0 - 4.0cm %FS: 28.60 cm >25 % LA volume: 50 Mitral Valve Dec Time:282.00 msec Peak E:.86 m/sec Peak A:1.00 m/sec E/A Ratio:0.9 Peak E' Lat Arnaldo:6.14 cm/s Peak E' Med Arnaldo:4.48 cm/s E/E' Lat Ratio:13.9 E/E' Med Ratio:19.1 Tricuspid Valve TV Regurg Peak Grad: 28.00mmHg TV Regurg Peak Arnaldo: 2.64m/sec Updated by Danitza Linn on 04/27/2016 8:54:27 AM electronically signed on 04/27/2016 8:56:23 AM with status of Final Wall Motion Obrien: 1=Normal, 2=Hypokinesis, 3=Akinesis, 4=Dyskinesis, 5=Aneurysmal, 6=Hyperkinetic, X=Not Visualized (Blank)=Missing
[2016-04-27] MEDS: Insulin LISPRO 300 UNITS/3 ML VIAL SQ SCH ×2 (09:02→13:03)
[2016-04-27] MEDS: Aspirin 325 MG TABLET PO SCH (09:03)
[2016-04-27] MEDS: amLODIPine 5 MG TABLET PO SCH (09:04)
[2016-04-27] MEDS: Furosemide 40 MG TABLET PO SCH (09:04)
[2016-04-27] MEDS: Cholecalciferol (D-3) 1,000 UNIT TABLET PO SCH (09:04)
[2016-04-27] MEDS ORDERED: Carbidopa/Levodopa 25/100 TABLET PO SCH (13:00)
--- NOTE | 2016-04-27 14:10 | Discharge Summary ---
Date of Encounter: 04/27/16 Time of Encounter: 10:30 - Discharge Diagnosis (1) TIA (transient ischemic attack) Priority: Primary Status: Acute Comments: Patient's MRI is negative. There is no acute infarct. The ventricles and cisternal spaces are prominent consistent with cerebral atrophy. There is no midline shift or mass effect. Patient had bilateral carotid Dopplers that show nonstenotic plaques bilaterally. His echocardiogram showed frequent PVCs, LVEF 50-55%, mild left ventricular diastolic dysfunction, normal right ventricular size and function, and no pulmonary hypertension. He is asymptomatic today. His speech is clear, he appears to answer questions appropriately, has equal strength bilaterally, and reports that he is return to baseline. He will be sent home with prescription for Plavix 75 mg by mouth daily, and aspirin 325 mg by mouth daily. These were recommended to be continued by Dr. Hoang the neurologist. Qualifiers: Transient cerebral ischemia type: unspecified Qualified Code(s): G45.9 - Transient cerebral ischemic attack, unspecified (2) CKD (chronic kidney disease) Priority: Secondary Status: Chronic Comments: Chronic. Stable. Again today creatinine is within normal limits. Qualifiers: Chronic kidney disease stage: stage 3 (moderate) Qualified Code(s): N18.3 - Chronic kidney disease, stage 3 (moderate) (3) HTN (hypertension) Priority: Secondary Status: Chronic Comments: Chronic and stable. Continue home medications. Qualifiers: Hypertension type: essential hypertension Qualified Code(s): I10 - Essential (primary) hypertension (4) COPD (chronic obstructive pulmonary disease) Priority: Secondary Status: Chronic Comments: Chronic and stable. Well controlled. Lungs are clear. Continue home medications. Qualifiers: COPD type: emphysema Emphysema type: unspecified Qualified Code(s): J43.9 - Emphysema, unspecified (5) Diabetes Priority: Secondary Status: Chronic Comments: Patient's A1c is 9.8. I did discuss with continue his home medications and diabetes education. She says they have artery done this with Heydi Garcia at [facility]. Patient to continue home medications on discharge and follow-up with primary care physician. 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 insulin use: unspecified bed bug exterminator insulin use status Qualified Code(s): E11.8 - Type 2 diabetes mellitus with unspecified complications - Discharge Medications Prescriptions: Aspirin 325 mg PO DAILY #30 tablet Clopidogrel Bisulfate [Plavix] 75 mg PO DAILY #30 tablet Home Medications: Amlodipine Besylate 2.5 mg PO DAILY 07/18/15 [History] Atorvastatin [Lipitor] 80 mg PO HS 07/18/15 [History] Carbidopa/Levodopa 25/100 [Sinemet 25/100] 0.5 tab PO QID 07/18/15 [History] Carvedilol [Coreg] 12.5 mg PO BID 07/18/15 [History] Cholecalciferol (Vitamin D3) [Vitamin D3] 2,000 unit PO DAILY 07/18/15 [History] Furosemide [Lasix] 40 mg PO QAM 07/18/15 [History] Lisinopril [Zestril] 5 mg PO DAILY 07/18/15 [History] Potassium Chloride [Y] 10 meq PO QAM 07/18/15 [History] Tamsulosin HCl [Flomax] 0.4 mg PO DAILY 07/18/15 [History] Trihexyphenidyl [Artane] 2 mg PO QPM 07/18/15 [History] Isosorbide MONOnitrate (24 HR) [Imdur] 240 mg PO DAILY #30 tab.er.24h 07/20/15 [ Rx] Acetaminophen [Tylenol Arthritis] 650 mg PO Q6H PRN 04/26/16 [History] Loratadine [Allergy Relief] 10 mg PO DAILY 04/26/16 [History] Psyllium [Metamucil Fiber Singles Packet] 1 packet PO DAILY 04/26/16 [History] Saxagliptin HCl [Onglyza] 2.5 mg PO DAILY 04/26/16 [History] Trihexyphenidyl [Artane] 3 mg PO QAM 04/26/16 [History] Aspirin 325 mg PO DAILY #30 tablet 04/27/16 [Rx] Clopidogrel Bisulfate [Plavix] 75 mg PO DAILY #30 tablet 04/27/16 [Rx] HydrALAZINE 10 mg IVP Q6HR PRN #0 vial 04/27/16 [Rx] Allergies/Adverse Reactions: Allergies bupropion Allergy (Verified 07/18/15 22:27) See Comments finasteride Allergy (Verified 07/18/15 22:27) See Comments morphine Allergy (Verified 07/18/15 22:27) See Comments oxybutynin Allergy (Verified 07/18/15 22:27) See Comments Terazosin Allergy (Verified 07/18/15 22:27) See Comments tramadol Allergy (Verified 07/18/15 22:27) See Comments Procedures/tests Complete & Pending: Procedures Performed prior 72 hours Category Date Time Status MR head/brain wo con [MR] Routine MRI 04/26/16 10:18 Draft ECG 12 lead ECG [ECG] Routine Y 04/24/16 16:11 Completed ECG 12 lead ECG [ECG] Routine Y 04/25/16 19:03 Completed EV carotid duplex imaging BI Routine Y 04/27/16 08:00 Completed EV echocardiogram Routine Y 04/26/16 07:00 Completed Date of admission: 04/25/16 20:57 [facility] Consults: 04/26/16 16:26 Consult to Auditor/Quality [CONS] Routine Reason for SW Consult: [facility] patient blue [facility] - unable to care for him at home. Newly combative behavior towards staff and after TIA Discharging clinician: Shanda Jurado Anticipated date of discharge: 04/27/16 - Patient Status Disposition: Home, Self-Care Functional capacity at discharge: independent ambulation Overall status at discharge: patient is back to baseline - Discharge Instructions Follow Up With: [facility] [Primary Care Provider] - Additional Instructions: Please follow up with your family doctor or at the [facility] within the next week. Take medications as written. Begin taking home medications when you return home. REturn to the ER if you have any problems or concerns or for any worsening condition. - Diet and Activity Activity: resume usual activities as tolerated Diet: advance to your usual diet Hospital course: Mr. Monzon is a 75 year old male who presented to the emergency room twice within a 24-hour timeframe, the first time he decided to decline admission and go home, the second time he decided to stay for admission. His reported that he was leaving to one side and appeared that he was confused and having trouble with his speech. He was admitted to the observation unit where all of his testing was negative. Carotid Dopplers show bilateral nonstenotic plaques. Echocardiogram showed frequent PVCs, LVEF 50-55%, mild left ventricular diastolic dysfunction, normal right ventricular size and function, and no pulmonary hypertension, is an aortic and mitral regurgitation. His MRI was negative as well. Yesterday testing was delayed at times due to patient's agitation and combativeness. We did have to give him Ativan to get him in to the MRI. Later in the afternoon he became agitated again and needed some Haldol. Today patient appears to be calm, quiet, and answers questions appropriately. reports that he is return to baseline. She says that she is already attempting to establish a connection with [facility]. Patient has chronic kidney disease however during this admission his renal function labs remained within normal limits. Patient had an A1c done which is slightly elevated at 9.8%. states that they found he had diabetic education and he takes his medications as prescribed. Patient is stable for discharge at this time, will be taking patient home. - Time Spent with Patient Total time spent providing and/or coordinating discharge services: Less than 30 minutes - Constitutional Vitals: Temp Pulse Resp BP Pulse Ox 97.8 F 67 22 168/80 98 04/27/16 08:05 04/27/16 08:05 04/27/16 08:05 04/27/16 08:05 04/27/16 09:05 General appearance: Present: cooperative, A&O X 2, pleasant, no acute distress. Absent: answers questions appropriately Exam: Patient does not know the year or month. - Head Head exam: Present: normal inspection - Eye Eye exam: Present: normal appearance, PERRL, conjuntiva pink - ENT ENT exam: Present: mucous membranes moist, normal exam, normal external ear exam - Neck Neck exam general surgery: Present: normal inspection. Absent: lymphadenopathy , tenderness - Respiratory Respiratory exam: Present: CTAB. Absent: respiratory distress, rhonchi, wheezes , tachypnea - Cardiovascular Cardiovascular exam: Present: RRR, +S1, +S2. Absent: diastolic murmur, systolic murmur - Expanded Cardiovascular Exam Peripheral pulses: 2+: Dorsalis Pedis (L) PM, Dorsalis Pedis (R) PM - GI/Abdominal GI/Abdominal exam: Present: normal bowel sounds, soft. Absent: hepatomegaly, tenderness - Extremities Exam Extremities exam: Present: full ROM, normal capillary refill, normal inspection , warm, radial pulses palpable and symetrical. Absent: pedal edema, tenderness - Neurological Exam Neurological exam: Present: alert, oriented X3, strengths equal and symetr throughout. Absent: no focal deficits, facial droop, speech deficit - Expanded Neurological Exam Neurological exam expanded: Absent: expressive aphasia Patient oriented to: Present: person, place Neuro motor strength exam: LUE: 4, RUE: 4, LLE: 4, RLE: 4 Coma Scale Eye Opening: Spontaneous Coma Scale Motor Response: Obeys Commands Coma Scale Verbal Response: Oriented Coma Scale Total: 15
--- NOTE | 2016-04-27 14:30 | Physician Discharge Referral ---
Home Health/Hosp Referral Info Transfer to: Home Health Provider in Charge Post Discharge: PCP - Diagnosis (1) TIA (transient ischemic attack) Priority: Primary Status: Acute (2) CKD (chronic kidney disease) Priority: Secondary Status: Chronic (3) HTN (hypertension) Priority: Secondary Status: Chronic (4) COPD (chronic obstructive pulmonary disease) Priority: Secondary Status: Chronic (5) Diabetes Priority: Secondary Status: Chronic - Respiratory Orders Smoking Cessation: Smoking cessation has been advised. For more information, call the [place] Tobacco Quit Line at 9-211-QCDJ-NOW. - Diet/Nutrition Diet/Nutrition Orders: Regular - Activity Activity Orders: Up ad alexander - Services Needed Following services are medically necessary services: Nursing, Home Health Aide - Transfer Medications Prescriptions: Aspirin 325 mg PO DAILY #30 tablet Clopidogrel Bisulfate [Plavix] 75 mg PO DAILY #30 tablet Home Medications: Amlodipine Besylate 2.5 mg PO DAILY 07/18/15 [History] Atorvastatin [Lipitor] 80 mg PO HS 07/18/15 [History] Carbidopa/Levodopa 25/100 [Sinemet 25/100] 0.5 tab PO QID 07/18/15 [History] Carvedilol [Coreg] 12.5 mg PO BID 07/18/15 [History] Cholecalciferol (Vitamin D3) [Vitamin D3] 2,000 unit PO DAILY 07/18/15 [History] Furosemide [Lasix] 40 mg PO QAM 07/18/15 [History] Lisinopril [Zestril] 5 mg PO DAILY 07/18/15 [History] Potassium Chloride [Y] 10 meq PO QAM 07/18/15 [History] Tamsulosin HCl [Flomax] 0.4 mg PO DAILY 07/18/15 [History] Trihexyphenidyl [Artane] 2 mg PO QPM 07/18/15 [History] Isosorbide MONOnitrate (24 HR) [Imdur] 240 mg PO DAILY #30 tab.er.24h 07/20/15 [ Rx] Acetaminophen [Tylenol Arthritis] 650 mg PO Q6H PRN 04/26/16 [History] Loratadine [Allergy Relief] 10 mg PO DAILY 04/26/16 [History] Psyllium [Metamucil Fiber Singles Packet] 1 packet PO DAILY 04/26/16 [History] Saxagliptin HCl [Onglyza] 2.5 mg PO DAILY 04/26/16 [History] Trihexyphenidyl [Artane] 3 mg PO QAM 04/26/16 [History] Aspirin 325 mg PO DAILY #30 tablet 04/27/16 [Rx] Clopidogrel Bisulfate [Plavix] 75 mg PO DAILY #30 tablet 04/27/16 [Rx] HydrALAZINE 10 mg IVP Q6HR PRN #0 vial 04/27/16 [Rx] Allergies/Adverse Reactions: Allergies bupropion Allergy (Verified 07/18/15 22:27) See Comments finasteride Allergy (Verified 07/18/15 22:27) See Comments morphine Allergy (Verified 07/18/15 22:27) See Comments oxybutynin Allergy (Verified 07/18/15 22:27) See Comments Terazosin Allergy (Verified 07/18/15 22:27) See Comments tramadol Allergy (Verified 07/18/15 22:27) See Comments Certification: Further, I certify that my clinical findings support that this patient is homebound (i.e. absences from home require considerable and taxing effort and are for medical reasons or baptist services or infrequently or short duration when for other reasons) because: Homebound Reason: Altered mental status requiring supervision when leaving home Attestation: My signature below is to certify that this patient is under my care and that I, or nurse practitioner, or a physician's assistant unit forester working with me, has a face-to -face encounter with this patient.
--- NOTE | 2016-04-28 11:53 | Carotid Imaging Report ---
Carotid Duplex Patient Name:Sukhjinder Monzon Order Number:[id number] Procedure Date:04/27/2016 Date:1940ge:75 yrs Gender:Male Lt BP:162 / 72 mmHg Rt.BP:168 / 80 mmHgHeart Rate: Location:[facility] Room #: [facility] Mold Insert Changer:Shanda Keller RDCS, RVT Referring MD:Taylor Allen MD washing machine assembler:[facility] Reading MD:Salomon Arnold MD Primary Indications:Syncope Risk Factors Yes/No Hypertension Yes Diabetes Yes Hypercholesterolemia Yes Hx of TIA Unknown Hx of CVA Unknown Impressions: The bilateral carotid arteries have minimal plaque throughout. Recommendations: Test completed on 04/27/2016 at 10:35:44 am. Findings Carotid Duplex: Right: There is nonstenotic plaque in the right proximal common carotid artery. There is smooth homogeneous plaque. There is nonstenotic plaque in the right mid common carotid artery. There is smooth homogeneous plaque. There is nonstenotic plaque in the right distal common carotid artery. There is smooth heterogeneous plaque. There is antegrade spectral Doppler flow patterns in the right vertebral artery. Left: There is nonstenotic plaque in the left distal common carotid artery. There is smooth heterogeneous plaque. There is nonstenotic plaque in the left bifurcation. There is smooth heterogeneous plaque. There is antegrade spectral Doppler flow patterns in the left vertebral artery. Prior Study: No prior study available for comparison. Carotid Results Right PSV EDV Assessment Proximal CCA 61 10 Non Stenotic Plaque Mid CCA 61 11 Non Stenotic Plaque Distal CCA 75 8 Non Stenotic Plaque Bifurcation 77 9 Normal Proximal ICA 68 9 Normal Mid ICA 104 18 Normal Distal ICA 51 7 Normal ECA 95 8 Normal Vertebral Artery 46 11 Antegrade Flow Left PSV EDV Assessment Proximal CCA 100 16 Normal Mid CCA 86 11 Normal Distal CCA 84 11 Non Stenotic Plaque Bifurcation 81 13 Non Stenotic Plaque Proximal ICA 88 15 Normal Mid ICA 98 21 Normal Distal ICA 85 15 Normal ECA 104 9 Normal Vertebral Artery 42 9 Antegrade Flow Ratio's Right ICA/CCA Ratio: 1.70 ICA/CCA Values: 104/61 Left ICA/CCA Ratio: 1.14 ICA/CCA Values: 98/86 Updated by Salomon Arnold MD on 04/28/2016 11:40:55 AM electronically signed on 04/28/2016 11:47:10 AM with status of Final
== END 2016-04-27 15:44 | disposition home health service (06) ==
LOC: EMEROO 18:51 → 3BNU 18:51
PROVIDERS: ADMIT Internal Medicine; ATTEND Registered Nurse

== ENCOUNTER 2016-05-05 18:02 | Inpatient (IN) ==
--- NOTE | 2016-05-05 18:18 | Emergency Department Note ---
Disposition Clinical Impression: Non-STEMI (non-ST elevated myocardial infarction) Disposition: Admitted As Inpatient Condition: Fair [facility] [Primary Care Provider[facility] - Forms: ED Satisfaction Letter Chest Pain HPI - General Chief Complaint: ED Chest Pain Stated Complaint: CP/+TROP Time Seen by Provider: 05/05/16 18:05 - History of Present Illness HPI Narrative: Patient is not able to give an adequate history secondary to his medical condition of confusion. He presents from the [facility] where he went he said because of "heart" and they did find elevated troponin and so they sent him here. I did see the patient immediately upon arrival and also spoke with the paramedics. The patient denies any current chest discomfort. No shortness of breath, fevers, vomiting however this history is unreliable secondary to the patient's chronic confusion. Social history: No smoking or alcohol. There is no family here with the patient today. - Related Data Home Medications Medication Instructions Recorded Confirmed RX: Carbidopa/Levodopa 25/100 0.5 tab PO QID 07/18/15 05/05/16 [Sinemet 25/100] RX: Cholecalciferol (Vitamin D3) 2,000 unit PO DAILY 07/18/15 05/05/16 [Vitamin D3] RX: Lisinopril [Zestril] 5 mg PO DAILY 07/18/15 05/05/16 RX: Acetaminophen [Tylenol 650 mg PO Q6H PRN 04/26/16 05/05/16 Arthritis] RX: Loratadine [Allergy Relief] 10 mg PO DAILY PRN 04/26/16 05/05/16 RX: Psyllium [Metamucil Fiber 1 packet PO DAILY 04/26/16 05/05/16 Singles Packet] RX: Saxagliptin HCl [Onglyza] 2.5 mg PO DAILY 04/26/16 05/05/16 RX: Trihexyphenidyl [Artane] 2 mg PO QAM 04/26/16 05/05/16 Chlorhexidine Gluconate [Peridex] 15 ml MM BID 05/05/16 05/05/16 Dextrose 5 % in Water [Dextrose 500 ml IV DAILY 05/05/16 05/05/16 5%-Water IV Soln] Guaifenesin [Tussin] 200 mg PO QID PRN 05/05/16 05/05/16 Insulin Human Regular [HumuLIN R] 2 - 10 unit SQ PRN PRN 05/05/16 05/05/16 Ipratropium/Albuterol Neb [Duoneb] 3 ml IH Q6HR 05/05/16 05/05/16 Isosorbide MONOnitrate [Isosorbide 240 mg PO DAILY 05/05/16 05/05/16 Mononitrate ER] Melatonin [Melatin] 3 mg PO HS 05/05/16 05/05/16 Omeprazole [PriLOSEC] 20 mg PO DAILY 05/05/16 05/05/16 RX: Budesonide 2 mg IH BID 05/05/16 05/05/16 RX: Carvedilol 12.5 mg PO BID 05/05/16 05/05/16 RX: Ferrous Sulfate 325 mg PO DAILY 05/05/16 05/05/16 RX: Heparin 5,000 unit SQ Q12HR 05/05/16 05/05/16 RX: LORazepam [Lorazepam] 0.5 mg IM Q6H PRN 05/05/16 05/05/16 RX: TraZODone 25 mg PO HS PRN 05/05/16 05/05/16 Tamsulosin [Flomax] 0.4 mg PO DAILY 05/05/16 05/05/16 Trihexyphenidyl [Artane] 1 mg PO BID 05/05/16 05/05/16 Previous Rx's Medication Instructions Recorded RX: Aspirin 325 mg PO DAILY #30 tablet 04/27/16 RX: Clopidogrel Bisulfate [Plavix] 75 mg PO DAILY #30 tablet 04/27/16 Allergies Allergy/AdvReac Type Severity Reaction Status Date / Time bupropion Allergy See Verified 07/18/15 22:27 Comments finasteride Allergy See Verified 07/18/15 22:27 Comments morphine Allergy See Verified 07/18/15 22:27 Comments oxybutynin Allergy See Verified 07/18/15 22:27 Comments Terazosin Allergy See Verified 07/18/15 22:27 Comments tramadol Allergy See Verified 07/18/15 22:27 Comments Review of Systems: Unable to obtain secondary to patient's confusion Chest Pain PMH - Past Medical History Medical history: Reports: CHF, COPD, coronary artery disease, diabetes, GERD, hyperlipidemia, hypertension, myocardial infarction, renal disease, TIA Surgical history: Reports: appendectomy, coronary bypass (CABG) Psychiatric history: Reports: no psych history - Social History Smoking Status: Never smoker Alcohol use: Reports: none Drug use: Reports: none Physical Exam CONSTITUTIONAL: Well-appearing; well-nourished; A&O X 3, in no apparent distress HEAD: Normocephalic; atraumatic EYES: PERRL, no scleral icterus NOSE: The nose is normal in appearance without rhinorrhea NECK: No JVD or distended neck veins RESP: Normal chest excursion with respiration; breath sounds clear and equal bilaterally; no wheezes, rhonchi, or rales CARD: Regular rhythm, without murmurs, rub or gallop ABD: Non-distended; non-tender, soft, without rigidity, rebound or guarding,no pulsatile mass CHEST: No pain with palpation SKIN: Normal for age and race; warm and dry without diaphoresis ; no apparent lesions EXTREMITIES: Pulses are 2 plus and equal times 4 extremities, no peripheral edema or calf muscle pain Course Course Narrative: At this time the patient is well in appearance, he does have an elevated troponin from the [place]. The patient is getting a EKG, chest x-ray, labs and will be admitted 18:18 I did go back and see the patient again will also spoke with his . The patient is chest pain-free at this time. The said he did have epigastric pain earlier when he was at the [place]. His neon tube bender is Dr. Rodriguez. I do have the hospitalist was paged for admission 19:18 - Reevaluation(s) Time: 19:18 Vital Signs Temperature 97.8 F 05/05/16 18:03 Pulse Rate 90 05/05/16 18:03 Respiratory Rate 20 05/05/16 18:03 Blood Pressure 139/80 05/05/16 18:03 O2 Sat by Pulse Oximetry 98 05/05/16 18:03 Temperature 97.8 F 05/05/16 18:03 Pulse Rate 92 05/05/16 19:06 Respiratory Rate 18 05/05/16 19:06 Blood Pressure 145/103 05/05/16 19:06 O2 Sat by Pulse Oximetry 98 05/05/16 19:06 Oxygen Delivery Oxygen Delivery Room Air Chest Pain - MDM Narrative Medical decision making narrative: Patient is admitted. I have seen him multiple times. The patient does not have any shortness of breath and does have some pulmonary congestion but no overt congestive heart failure based on his x-ray, his oxygen saturation, JVD or rales on exam. I spoke with Dr. Mederos 19:56 - Medical Records Medical records reviewed: Yes I reviewed the patient's medical records. - Lab Data Lab results reviewed: Yes I reviewed the patient's lab results. Lab Results 05/05/16 Range/Units 19:09 Troponin I 0.03 (0-0.03) ng/mL - Radiology Data Radiology results reviewed: Yes I reviewed the patient's radiology results. Chest X-Ray 05/05/16 18:28 IMPRESSION: Mildly enlarged cardiac silhouette and pulmonary vascular congestion without overt pulmonary edema. D/ / Devon Edwards MD / Devon Edwards MD Interpreting Provider: Devon Edwards MD - EKG Data EKG attestation: Yes I reviewed and interpreted this EKG. EKG shows normal: sinus rhythm Rate: normal Rhythm: NSR, PVC's T wave inversions noted in: II, aVF When compared to previous EKG there are: no significant changes Interpretation: unchanged when compared to prior tracing (date) (04/25/16 - note : bigeminy) S.B.ABonillaRBonilla - S.B.A.R. S.B.A.R. Report Given to: Dr. Rosa M Montoya Repor Time: 19:53
--- NOTE | 2016-05-05 21:45 | Internal Med History&Physical ---
Date of Encounter: 05/05/16 Time of Encounter: 21:42 Assessment and Plan (1) Elevated troponin I level Current visit: Yes Status: Acute Troponin was 0.08 at the [facility], now is 0.03. We will trend every 6 hours. Echocardiogram from July 2015 shows an ejection fraction of 45% (2) Type 2 diabetes mellitus with insulin therapy Current visit: Yes Status: Acute Start Levemir and insulin sliding scale. Check hemoglobin A1c. (3) Parkinsons disease Current visit: Yes Status: Acute Resume carbidopa levodopa. [place] fall precautions. Get PT OT. (4) Essential hypertension Current visit: Yes Status: Acute Continue with home meds. (5) Chest pain Current visit: No Status: Acute Possibly in the context of unstable angina. We will place the patient on telemetry. Trend troponin. I have reviewed the patient's medical record and found a stress test from July 2015 which was positive for ischemia. Medical records at that time he was evaluated by cardiology and found not to be a current candidate for further workup and therefore he did not have a cardiac catheterization. This point he has been admitted with an elevated troponin level of 0.08 at the [facility]. He was sent from the [facility] for evaluation of chest pain and troponin elevation. Repeat troponin here is 0.03. Possibly starting to trend down. I will trend troponins every 6 hours. If he rules out and no further workup is needed. Qualifiers: Chest pain type: precordial pain Qualified Code(s): R07.2 - Precordial pain (6) DVT prophylaxis Current visit: Yes Status: Acute Encourage early ambulation. Internal Medicine - H&P: HPI Chief complaint: Chest pain Admitted From: Emergency Dept Plans for Post Hospital Care: Home History of present illness: Mr. Monzon is a 75 year old male with past medical history significant for coronary artery disease status post CABG, mild dementia and Parkinson's disease who presented to the hospital for evaluation of chest pain. History is limited by mild dementia. He says that he started having chest pain earlier today located in the left upper chest, sharp and stabbing, severe intensity, with no aggravating or alleviating factors, associated with lightheadedness. A 10 point review of systems was attempted and but was limited by dementia Family history reviewed and found to be noncontributory. Past Med Surg Social Fam HX - Past Medical History Medical history: CHF, COPD, coronary artery disease, diabetes, GERD, hyperlipidemia, hypertension, myocardial infarction, renal disease, TIA Psychiatric history: no psych history - Past Surgical History Surgical History: appendectomy, coronary bypass (CABG) - Social History Smoking Status: Never smoker Smokeless Tobacco Status: No Alcohol use: none Drug use: none - Family History Father Living Status: Hx Family Cardiac Disorders: Yes (MA) Mother Family Member Ethnicity: Non- Living Status: Hx Family Cardiac Disorders: No Hx Family Respiratory Disorders: No Hx Family Cancer: Yes (uterine) Hx Family GI Disorders: Yes (GERD) Hx Family Endocrine Disorder: No Hx Family Neuromuscular Disorders: No Hx Family Neurologic Disorders: No Hx Family HEENT Disorders: No Hx Family Autoimmune Disorders: No Internal Medicine - H&P: Meds Carbidopa/Levodopa 25/100 [Sinemet 25/100] 0.5 tab PO QID 07/18/15 [History] Cholecalciferol (Vitamin D3) [Vitamin D3] 2,000 unit PO DAILY 07/18/15 [History] Lisinopril [Zestril] 5 mg PO DAILY 07/18/15 [History] Acetaminophen [Tylenol Arthritis] 650 mg PO Q6H PRN 04/26/16 [History] Loratadine [Allergy Relief] 10 mg PO DAILY PRN 04/26/16 [History] Psyllium [Metamucil Fiber Singles Packet] 1 packet PO DAILY 04/26/16 [History] Saxagliptin HCl [Onglyza] 2.5 mg PO DAILY 04/26/16 [History] Trihexyphenidyl [Artane] 2 mg PO QAM 04/26/16 [History] Aspirin 325 mg PO DAILY #30 tablet 04/27/16 [Rx] Clopidogrel Bisulfate [Plavix] 75 mg PO DAILY #30 tablet 04/27/16 [Rx] Budesonide 2 mg IH BID 05/05/16 [History] Carvedilol 12.5 mg PO BID 05/05/16 [History] Chlorhexidine Gluconate [Peridex] 15 ml MM BID 05/05/16 [History] Dextrose 5 % in Water [Dextrose 5%-Water IV Soln] 500 ml IV DAILY 05/05/16 [ History] Ferrous Sulfate 325 mg PO DAILY 05/05/16 [History] Guaifenesin [Tussin] 200 mg PO QID PRN 05/05/16 [History] Heparin 5,000 unit SQ Q12HR 05/05/16 [History] Insulin Human Regular [HumuLIN R] 2 - 10 unit SQ PRN PRN 05/05/16 [History] Ipratropium/Albuterol Neb [Duoneb] 3 ml IH Q6HR 05/05/16 [History] Isosorbide MONOnitrate [Isosorbide Mononitrate ER] 240 mg PO DAILY 05/05/16 [ History] LORazepam [Lorazepam] 0.5 mg IM Q6H PRN 05/05/16 [History] Melatonin [Melatin] 3 mg PO HS 05/05/16 [History] Omeprazole [PriLOSEC] 20 mg PO DAILY 05/05/16 [History] Tamsulosin [Flomax] 0.4 mg PO DAILY 05/05/16 [History] TraZODone 25 mg PO HS PRN 05/05/16 [History] Trihexyphenidyl [Artane] 1 mg PO BID 05/05/16 [History] Allergies bupropion Allergy (Verified 07/18/15 22:27) See Comments finasteride Allergy (Verified 07/18/15 22:27) See Comments morphine Allergy (Verified 07/18/15 22:27) See Comments oxybutynin Allergy (Verified 07/18/15 22:27) See Comments Terazosin Allergy (Verified 07/18/15 22:27) See Comments tramadol Allergy (Verified 07/18/15 22:27) See Comments All Systems PM: A 10-system review of systems was performed and is negative for pertinent findings except as documented above in the HPI. - Constitutional Vitals: Temp Pulse Resp BP Pulse Ox 97.8 F 92 20 118/89 98 05/05/16 18:03 05/05/16 19:06 05/05/16 20:16 05/05/16 20:16 05/05/16 19:06 General appearance: Present: A&O X 2 - Eye Eye exam: Present: PERRL, conjuntiva pink, sclera anicteric Pupils: Present: PERRL - Respiratory Respiratory exam: Present: CTAB. Absent: accessory muscle use, rales, rhonchi, wheezes - Cardiovascular Cardiovascular exam: Present: irregular rhythm, +S1, +S2. Absent: diastolic murmur, gallop, rubs, systolic murmur - GI/Abdominal GI/Abdominal exam: Present: normal bowel sounds, soft, no peritoneal signs. Absent: distended, tenderness - Extremities Exam Extremities exam: Present: warm, radial pulses palpable and symetrical. Absent : calf tenderness, cyanotic, pedal edema - Neurological Exam Neurological exam: Present: CN II-XII intact, oriented X3, no focal deficits. Absent: pronater drift, facial droop Additional comments: Parkinsonism tremors of the upper extremities. - Skin Skin exam: Present: dry, intact
[2016-05-05] MEDS ORDERED: *HR* LORazepam 2 MG/ML VIAL IM PRN (21:46)
[2016-05-05] MEDS ORDERED: Dextrose Gel 15 GM PO PRN ×2 (22:13)
[2016-05-05] MEDS ORDERED: *HR* Dextrose 50 % in Water (Syg) 50 ML SYRINGE IVP PRN (22:13)
[2016-05-05] MEDS ORDERED: D5% in Water 1,000 ML IVC PRN (22:13)
[2016-05-05] MEDS ORDERED: Naloxone 0.4 MG/ML INJ IVP PRN (22:18)
[2016-05-05] MEDS ORDERED: Acetaminophen 325 MG TABLET PO PRN (22:18)
[2016-05-05] MEDS: Carbidopa/Levodopa 25/100 TABLET PO SCH (22:35)
[2016-05-05] MEDS: Melatonin 3 MG TABLET PO SCH (22:35)
[2016-05-05] MEDS ORDERED: *HR* LORazepam 2 MG/ML VIAL IVP PRN (23:10)
[2016-05-06 01:43] LABS: Basophils % 0.4 %; Eosinophils # 0.2 K/mcL (0.0-0.6); Eosinophils % 2.3 %; Hematocrit 41.4 % (37.5-50.1); Immature Granulocytes % 0.4 % (0-4); Immature Platelets 6.2 % (1.1-6.1); Lymphocytes # 1.4 K/mcL (0.6-4.6); Lymphocytes % 16.7 %; Mean Corpuscular HGB Conc 31.4 g/dL (31.6-35.5); Mean Corpuscular Hemoglobin 29.8 pg (28.0-33.3); Mean Platelet Volume 11.7 fL (9.4-12.4); Monocytes # 0.5 K/mcL (0.0-1.3); Neutrophils # 6.2 K/mcL (1.6-8.9); Platelet Count 104 K/mcL (140-400); Red Blood Count 4.36 M/mcL (4.19-5.50); Red Cell Distribution Width 13.7 % (11.5-14.5); Segmented Neutrophils % 74.2 %
[2016-05-06 01:56] LABS: BUN/Creatinine Ratio 21 (6-26); Blood Urea Nitrogen 21 mg/dL (8-26); Calcium 8.6 mg/dL (8.6-10.8); Carbon Dioxide 22 mEq/L (19-29); Chloride 113 mEq/L (98-109); Glucose 138 mg/dL (70-99); Osmolality,Calculated 299 (280-300); Sodium 142 mEq/L (136-145); eGFR For African Americans > 60 (> 60); eGFR For Non-African Americans > 60 (> 60)
[2016-05-06 02:08] LABS: Potassium 4.1 mEq/L (3.5-4.5)
[2016-05-06] MEDS: Ipratropium/Albuterol Neb 3 ML IH SCH ×4 (04:09→22:49)
[2016-05-06] MEDS: *HR* Heparin 5,000 UNIT/ML VIAL SQ SCH ×3 (05:29→20:27)
[2016-05-06 05:46] LABS: Hemoglobin A1C 9.3 %
[2016-05-06] MEDS: Budesonide Neb 0.5 MG/2 ML IH SCH ×2 (10:03→22:49)
--- NOTE | 2016-05-06 11:28 | Internal Med Progress Note ---
<Jose Gao - Last Filed: 05/06/16 17:18> Date of Encounter: 05/06/16 Time of Encounter: 13:30 - Assessment and plan (1) TIA (transient ischemic attack) Current Visit: Yes Status: Acute Assessment and plan: - Patient's temporary unresponsiveness today is most likely TIA secondary to poor blood perfusion to brain. - CT head today found no acute intracranial abnormality. - Start atorvastatin 80 mg PO. Continue aspirin. - Closely monitor with neuro check. Qualifiers: Transient cerebral ischemia type: unspecified Qualified Code(s): G45.9 - Transient cerebral ischemic attack, unspecified (2) Elevated troponin I level Current Visit: Yes Status: Acute Assessment and plan: - Patient was transferred here for troponin 0.08 at [facility]. - Resolved as troponins remain negative (0.03 x 3 and then 0.04) during his stay here. - Last echo on 04/26/16 showed LVEF 50-55% with mild LV diastolic dysfunction. (3) CAD (coronary artery disease) Current Visit: Yes Status: Acute Assessment and plan: - S/p 3V CABG. - Continue asa, plavix, beta jaden, Imdur, statin. Qualifiers: Coronary Disease-Associated Artery/Lesion type: [place] artery [place] vs. transplanted heart: [place] heart Associated angina: without angina Qualified Code(s): I25.10 - Atherosclerotic heart disease of [place] coronary artery without angina pectoris (4) COPD (chronic obstructive pulmonary disease) Current Visit: No Status: Chronic Assessment and plan: - Continue bronchodilator. Qualifiers: COPD type: emphysema Emphysema type: unspecified Qualified Code(s): J43.9 - Emphysema, unspecified (5) Type 2 diabetes mellitus with insulin therapy Current Visit: Yes Status: Acute Assessment and plan: - Continue insulin sliding scale. (6) Parkinsons disease Current Visit: Yes Status: Acute Assessment and plan: - Appears to be mild as patient's baseline before hospitalization is able to ambulate and feed himself independently. (7) DVT prophylaxis Current Visit: Yes Status: Acute Assessment and plan: - Continue SQ heparin. (8) Goals of care, counseling/discussion Current Visit: Yes Status: Acute Assessment and plan: - Appreciate palliative care discussion with patient and his about their goal of care. - Goals are to complete rehab and return home. They don't want any invasive intervention at this time. Patient is a DNRCC-A, DNI - Subjective Interval history: Patient was seen and examined at around 10 am. Patient was somnolent but arousable to verbal stimuli at that time. Patient stated no when asking if he has any chest pain or shortness of breath. I was notifed by nurse at 1:30 pm that patient's likes to talk to me. Patient was able to eat with his feeding him 30 minutes before. Per his , patient was at hospitalized at [facility] for 4-5 days for possible storke but transferred to here last night for elevated troponin. While in the room, patient was noted to be unresponsive to verbal or pain stimuli. Medication list was reviewed and patient didn't receive any medications except heparin SQ this morning. Irregular heart beats on auscultation of chest and bedside monitor showed some PACs & PVCs. Bedside EKG was done and appears similar to prior EKG without significant ischemic change. I accompanied patient to get STAT head CT done. Right before getting head CT (~2 pm), patient becomes awake and can answer simple questions. I personally don't see any significant intracranial abnormality on imaging at the scene. Neuro exam after head CT is grossly normal without focal deficit. - Constitutional Vitals: Temp Pulse Resp BP Pulse Ox 98.3 F 73 18 145/67 97 05/06/16 07:49 05/06/16 07:49 05/06/16 10:07 05/06/16 07:49 05/06/16 10:07 General appearance: Present: A&O X 0, cooperative - Head Head exam: Present: atraumatic, normocephalic - Eye Eye exam: Present: PERRL, conjuntiva pink, sclera anicteric - Neck Neck exam general surgery: Present: supple, trachea midline. Absent: lymphadenopathy - Respiratory Respiratory exam: Present: CTAB. Absent: accessory muscle use, rales, rhonchi, wheezes - Cardiovascular Cardiovascular exam: Present: irregular rhythm, +S1, +S2. Absent: diastolic murmur, gallop, rubs, systolic murmur - GI/Abdominal GI/Abdominal exam: Present: normal bowel sounds, soft, no peritoneal signs. Absent: distended, tenderness - Extremities Exam Extremities exam: Present: warm, radial pulses palpable and symetrical. Absent : calf tenderness, cyanotic, pedal edema - Neurological Exam Neurological exam: Present: alert, CN II-XII intact, no focal deficits. Absent : pronater drift, facial droop, speech deficit - Skin Skin exam: Present: dry, intact. Absent: rash Internal Medicine: Result - Labs CBC & Chem 7: 05/06/16 01:20 05/06/16 01:20 Labs: Short CBC 05/06/16 Range/Units 01:20 WBC 8.3 (4.3-11.1) K/mcL Hgb 13.0 (12.9-16.9) g/dL Hct 41.4 (37.5-50.1) % Plt Count 104 L (140-400) K/mcL Neutrophils # 6.2 (1.6-8.9) K/mcL BMP 05/06/16 01:20 Sodium 142 Potassium 4.1 Chloride 113 H Carbon Dioxide 22 BUN 21 Creatinine 1.02 Glucose 138 H Calcium 8.6 Cardiac Enzymes 05/06/16 05/06/16 Range/Units 01:20 06:37 Troponin I 0.03 0.03 (0-0.03) ng/mL Consult Discharge Plan - Plan [facility]errals: [facility] [Primary Care Provider] - <Charlie Torres P - Last Filed: 05/06/16 17:49> Date of Encounter: 05/06/16 - Constitutional Vitals: Temp Pulse Resp BP Pulse Ox 97.2 F L 75 18 116/72 91 L 05/06/16 15:35 05/06/16 15:35 05/06/16 16:02 05/06/16 15:35 05/06/16 16:02 Internal Medicine: Result - Labs CBC & Chem 7: 05/06/16 01:20 05/06/16 01:20 Labs: Short CBC 05/06/16 Range/Units 01:20 WBC 8.3 (4.3-11.1) K/mcL Hgb 13.0 (12.9-16.9) g/dL Hct 41.4 (37.5-50.1) % Plt Count 104 L (140-400) K/mcL Neutrophils # 6.2 (1.6-8.9) K/mcL BMP 05/06/16 01:20 Sodium 142 Potassium 4.1 Chloride 113 H Carbon Dioxide 22 BUN 21 Creatinine 1.02 Glucose 138 H Calcium 8.6 Cardiac Enzymes 05/06/16 05/06/16 05/06/16 Range/Units 01:20 06:37 12:43 Troponin I 0.03 0.03 0.04 H* (0-0.03) ng/mL - Impressions Impressions Head CT 05/06/16 13:52 IMPRESSION: No acute intracranial abnormality. Underlying atrophy with remote appearing infarct or perivascular space in left basal ganglia. D/ / Luis Horton MD / Luis Horton MD Interpreting Provider: Luis Horton MD - Attending Attestation I examined this patient and my medical decision-making was reviewed with the MOTOR POLARIZER/PA/Advanced Practice Nurse/Resident Physician. I agree with the documented findings, disposition and treatment plan as described except to the extent set forth below. We will monitor patient very closely. Palliative care evaluation appreciated.
[2016-05-06] MEDS: Insulin LISPRO 300 UNITS/3 ML VIAL SQ SCH ×4 (14:27→21:27)
[2016-05-06] MEDS: Aspirin 325 MG TABLET PO SCH (14:28)
[2016-05-06] MEDS: Isosorbide MONOnitrate (24 HR) 60 MG TAB.ER.24H PO SCH (14:28)
[2016-05-06] MEDS: Carbidopa/Levodopa 25/100 TABLET PO SCH ×4 (14:29→21:27)
--- NOTE | 2016-05-06 15:20 | Palliative - Consult Note ---
Date of Encounter: 05/06/16 Time of Encounter: 14:00 - Assessment and Plan (1) Goals of care, counseling/discussion Current Visit: Yes Status: Acute Assessment and plan: Patient suffered a suspected TIA with an episode of unresponsiveness and hypotension this AM. The patient has now fully regained his baseline capacities and is alert and oriented at the time of consult. His Skylar is at his bedside and provides additional history related to his care. The patient was an inpatient at the local [facility] and his their goals of care are that he will be able to return there upon discharge for rehab. His Skylar reports that at baseline he can ambulate independently and go fishing. He does not meet hospice criteria as his EF is 45-50% without dyspnea at rest. His Parkinson's is mild and he is able to feed himself with mild dementia. Goals are to complete rehab and return home. Patient is a DNRCC-A, DNI. (2) Chest pain Current Visit: No Status: Acute Assessment and plan: Patient denies CP at present. Troponins trending down. Supportive care only. Medicine following. Qualifiers: Chest pain type: precordial pain Qualified Code(s): R07.2 - Precordial pain (3) HTN (hypertension) Current Visit: No Status: Chronic Qualifiers: Hypertension type: essential hypertension Qualified Code(s): I10 - Essential (primary) hypertension (4) CAD (coronary artery disease) Current Visit: Yes Status: Acute Qualifiers: Coronary Disease-Associated Artery/Lesion type: [place] artery [place] vs. transplanted heart: [place] heart Associated angina: without angina Qualified Code(s): I25.10 - Atherosclerotic heart disease of [place] coronary artery without angina pectoris (5) TIA (transient ischemic attack) Current Visit: Yes Status: Acute Assessment and plan: Symptoms resolved. CT head WNL Qualifiers: Transient cerebral ischemia type: unspecified Qualified Code(s): G45.9 - Transient cerebral ischemic attack, unspecified Palliative-CN HPI - Data of Consult Patient: new to practice Consult date: 05/06/16 Requesting Physician: Jose Gao [facility] - Consult Narrative Palliative Care/Comfort Measures: Palliative care Reason for consult: Goals of Care History of present illness: Mr. Monzon is a 75 year old male [facility] ([facility] with chest pain and elevated troponin level. Medical record review was completed. Dr. Gao reports that patient had suffered an episode of unresponsiveness and hypotension this AM. The staff reports that the patient could not speak, eyes were closed, and not responding to painful stimuli. Dr. Gao reports that the patient was transferred to CT scan and had a stat CT of his head completed. He reports that the patient had suffered a suspected TIA. Upon this consult, the patient is wide awake, able to communicate verbally and reports that he has no recollection of the previous episode. Patient has a history of mild dementia and Parkinson's. His Skylar is at the bedside and provides additional history. She reports that patient usually stays at home in her care but has been at the [facility] the past 5 days and was sent here to [facility] for chest pain. The patients vital signs are now stable. 82, 22, 159/70. Records indicate that past ECHO 07/19/15 reveals EF 45-50%, mild LVH, moderate distolic dysfunction. Patient had abnormal nuclear stress in July 2015 and due to his dementia and renal issues was not a candidate for invasive procedures. This consult is for [facility] planning. CC: Charlie Torres MD Past Med Surg Social Fam HX - Past Medical History Source: patient, obtained from family Medical history: CHF, COPD, coronary artery disease, diabetes, GERD, hyperlipidemia, hypertension, myocardial infarction, renal disease, TIA Psychiatric history: no psych history - Past Surgical History Surgical History: appendectomy, coronary bypass (CABG) - Social History Smoking Status: Never smoker Smokeless Tobacco Status: No Alcohol use: none Drug use: none - Family History Father Age: 65 Family Member Ethnicity: Non- Living Status: Age at : 65 Cause of : heart attack Hx Family Cardiac Disorders: Yes Hx Family Respiratory Disorders: No Hx Family Cancer: Yes (mother had uterine cancer) Hx Family GI Disorders: No Hx Family Genitourinary Disorders: No Hx Family Endocrine Disorder: Yes (diabetes) Hx Family Musculoskeletal Disorders: No Hx Family Neuromuscular Disorders: No Hx Family Neurologic Disorders: No Hx Family HEENT Disorders: No Hx Family Autoimmune Disorders: No Hx Family Reproductive Disorders: No Hx Family Psychosocial Disorders: No Mother Family Member Ethnicity: Non- Living Status: Hx Family Cardiac Disorders: No Hx Family Respiratory Disorders: No Hx Family Cancer: Yes (uterine) Hx Family GI Disorders: Yes (GERD) Hx Family Endocrine Disorder: No Hx Family Neuromuscular Disorders: No Hx Family Neurologic Disorders: No Hx Family HEENT Disorders: No Hx Family Autoimmune Disorders: No Medications and Allergies Carbidopa/Levodopa 25/100 [Sinemet 25/100] 0.5 tab PO QID 07/18/15 [History] Cholecalciferol (Vitamin D3) [Vitamin D3] 2,000 unit PO DAILY 07/18/15 [History] Lisinopril [Zestril] 5 mg PO DAILY 07/18/15 [History] Acetaminophen [Tylenol Arthritis] 650 mg PO Q6H PRN 04/26/16 [History] Loratadine [Allergy Relief] 10 mg PO DAILY PRN 04/26/16 [History] Psyllium [Metamucil Fiber Singles Packet] 1 packet PO DAILY 04/26/16 [History] Saxagliptin HCl [Onglyza] 2.5 mg PO DAILY 04/26/16 [History] Trihexyphenidyl [Artane] 2 mg PO QAM 04/26/16 [History] Aspirin 325 mg PO DAILY #30 tablet 04/27/16 [Rx] Clopidogrel Bisulfate [Plavix] 75 mg PO DAILY #30 tablet 04/27/16 [Rx] Budesonide 2 mg IH BID 05/05/16 [History] Carvedilol 12.5 mg PO BID 05/05/16 [History] Chlorhexidine Gluconate [Peridex] 15 ml MM BID 05/05/16 [History] Dextrose 5 % in Water [Dextrose 5%-Water IV Soln] 500 ml IV DAILY 05/05/16 [ History] Ferrous Sulfate 325 mg PO DAILY 05/05/16 [History] Guaifenesin [Tussin] 200 mg PO QID PRN 05/05/16 [History] Heparin 5,000 unit SQ Q12HR 05/05/16 [History] Insulin Human Regular [HumuLIN R] 2 - 10 unit SQ PRN PRN 05/05/16 [History] Ipratropium/Albuterol Neb [Duoneb] 3 ml IH Q6HR 05/05/16 [History] Isosorbide MONOnitrate [Isosorbide Mononitrate ER] 240 mg PO DAILY 05/05/16 [ History] LORazepam [Lorazepam] 0.5 mg IM Q6H PRN 05/05/16 [History] Melatonin [Melatin] 3 mg PO HS 05/05/16 [History] Omeprazole [PriLOSEC] 20 mg PO DAILY 05/05/16 [History] Tamsulosin [Flomax] 0.4 mg PO DAILY 05/05/16 [History] TraZODone 25 mg PO HS PRN 05/05/16 [History] Trihexyphenidyl [Artane] 1 mg PO BID 05/05/16 [History] Atorvastatin [Lipitor] 80 mg PO HS 05/06/16 [History] Allergies bupropion Allergy (Verified 07/18/15 22:27) See Comments finasteride Allergy (Verified 07/18/15 22:27) See Comments morphine Allergy (Verified 07/18/15 22:27) See Comments oxybutynin Allergy (Verified 07/18/15 22:27) See Comments Terazosin Allergy (Verified 07/18/15 22:27) See Comments tramadol Allergy (Verified 07/18/15 22:27) See Comments ROS unobtainable: due to mental status (Limited d/t dementia) - Constitutional Constitutional ROS PAL: fatigue - EENT Eyes: as per HPI - Cardiovascular Cardiovascular ROS: as per HPI - Respiratory Respiratory: as per HPI - Gastrointestinal Gastrointestinal: as per HPI - Genitourinary Genitourinary ROS male: as per HPI - Musculoskeletal Musculoskeletal ROS IM: muscle weakness - Neurological Neurological ROS: as per HPI - Psychiatric Psychiatric general PM: as per HPI Palliative Care-Exam - Constitutional Vitals: Temp Pulse Resp BP Pulse Ox 98.3 F 82 22 159/70 94 L 05/06/16 07:49 05/06/16 11:56 05/06/16 11:56 05/06/16 11:56 05/06/16 10:39 General appearance: Present: cooperative, no acute distress - Head Head Exam: Present: atraumatic, normal inspection, normocephalic - Eye Eye exam: Present: PERRL Pupils: Present: PERRL - ENT ENT exam: Present: mucous membranes moist - Neck Neck exam: Present: full ROM - Expanded Neck Exam Neck exam: Present: tenderness - Respiratory Respiratory exam: Present: CTAB - Cardiovascular Cardiovascular exam: Present: irregular rhythm, +S1, +S2 (Telemetry with SR with PVCs) - Expanded Cardiovascular Exam Peripheral pulses: 1+: Femoral (L) PM, Femoral (R) PM, Posterior Tibialis (L), Posterior Tibialis (R), 2+: Carotid (L) PM, Carotid (R) PM, Radial (L), Radial ( R), Dorsalis Pedis (L) PM, Dorsalis Pedis (R) PM - GI/Abdominal Exam GI/Abdominal exam: Present: normal bowel sounds - Rectal Rectal Exam: Present: deferred - exam: Present: normal inspection (voids per BSC) - Expanded Upper Extremities Exam Shoulder exam: Present: full ROM Upper Arm exam: Present: full ROM Forearm wrist exam: Present: full ROM - Expanded Lower Extremities Exam Upper Leg exam: Present: full ROM Lower Leg exam: Present: full ROM - Back Exam Back exam: Present: full ROM - Neurological Exam Neurological exam: Present: alert, oriented X3 Additional comments: Patients is oriented X 3. Family members arrived and patient able to provide positive ID. - Expanded Neurological Exam Patient oriented to: Present: person, place, time Cranial nerves: EOM's intact: Normal, gag reflex: Normal Cerebellar function: finger to nose: Normal Neuro motor strength exam: LUE: 4, RUE: 4, LLE: 4, RLE: 4 Coma Scale Eye Opening: Spontaneous Coma Scale Motor Response: Obeys Commands Coma Scale Verbal Response: Oriented Coma Scale Total: 15 - Psychiatric Psychiatric exam: Present: normal mood Additional comments: reports that patient is presenting at his baseline communication and actions. - Skin Skin exam: Present: dry, warm Internal Medicine - CN: Reslt - Labs CBC & Chem 7: 05/06/16 01:20 05/06/16 01:20 Labs: Short CBC 05/06/16 Range/Units 01:20 WBC 8.3 (4.3-11.1) K/mcL Hgb 13.0 (12.9-16.9) g/dL Hct 41.4 (37.5-50.1) % Plt Count 104 L (140-400) K/mcL Neutrophils # 6.2 (1.6-8.9) K/mcL BMP 05/06/16 01:20 Sodium 142 Potassium 4.1 Chloride 113 H Carbon Dioxide 22 BUN 21 Creatinine 1.02 Glucose 138 H Calcium 8.6 Cardiac Enzymes 05/06/16 05/06/16 05/06/16 Range/Units 01:20 06:37 12:43 Troponin I 0.03 0.03 0.04 H* (0-0.03) ng/mL - Impressions Impressions Head CT 05/06/16 13:52 IMPRESSION: No acute intracranial abnormality. Underlying atrophy with remote appearing infarct or perivascular space in left basal ganglia. D/ / Luis Horton MD / Luis Horton MD Interpreting Provider: Luis Horton MD Consult Discharge Plan - Plan Referrals: [facility] [Primary Care Provider] - Palliative Quality Palliative Quality: Screen for Code Status: Yes, Screen for Goals of Care: Yes, Screen for Pain: Yes, If Pain Regimen Started, Initiate Bowel Regimen: Yes, Screen for Nausea/Vomitting: Yes Code Status: DNRCC-A, DNI
--- NOTE | 2016-05-06 20:55 | Electrocardiograph Report ---
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
[2016-05-06] MEDS ORDERED: Insulin DETEMIR 100 UNIT/ML X5UNITS SQ SCH (21:00)
[2016-05-06] MEDS: Melatonin 3 MG TABLET PO SCH (21:26)
[2016-05-07] MEDS: Ipratropium/Albuterol Neb 3 ML IH SCH ×4 (04:24→22:42)
[2016-05-07] MEDS: *HR* Heparin 5,000 UNIT/ML VIAL SQ SCH ×3 (05:30→16:48)
[2016-05-07 06:08] LABS: Basophils % 0.3 %; Eosinophils # 0.2 K/mcL (0.0-0.6); Eosinophils % 2.8 %; Hematocrit 39.2 % (37.5-50.1); Hemoglobin 12.5 g/dL (12.9-16.9); Immature Granulocytes % 0.9 % (0-4); Lymphocytes # 1.6 K/mcL (0.6-4.6); Lymphocytes % 23.4 %; Mean Corpuscular HGB Conc 31.9 g/dL (31.6-35.5); Mean Corpuscular Hemoglobin 28.9 pg (28.0-33.3); Mean Corpuscular Volume 90.5 fL (83.0-100.0); Mean Platelet Volume 10.7 fL (9.4-12.4); Monocytes # 0.5 K/mcL (0.0-1.3); Neutrophils # 4.4 K/mcL (1.6-8.9); Platelet Count 153 K/mcL (140-400); Red Blood Count 4.33 M/mcL (4.19-5.50); Segmented Neutrophils % 64.6 %
[2016-05-07 07:23] LABS: BUN/Creatinine Ratio 17 (6-26); Blood Urea Nitrogen 19 mg/dL (8-26); Calcium 8.4 mg/dL (8.6-10.8); Carbon Dioxide 23 mEq/L (19-29); Chloride 112 mEq/L (98-109); Glucose 156 mg/dL (70-99); Osmolality,Calculated 301 (280-300); Potassium 3.8 mEq/L (3.5-4.5); Sodium 143 mEq/L (136-145); eGFR For African Americans > 60 (> 60); eGFR For Non-African Americans > 60 (> 60)
--- NOTE | 2016-05-07 08:15 | Electrocardiograph Report ---
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
[2016-05-07] MEDS: Carbidopa/Levodopa 25/100 TABLET PO SCH ×4 (08:47→22:35)
[2016-05-07] MEDS: Aspirin 325 MG TABLET PO SCH (08:47)
[2016-05-07] MEDS: Isosorbide MONOnitrate (24 HR) 60 MG TAB.ER.24H PO SCH (08:48)
[2016-05-07] MEDS: Insulin LISPRO 300 UNITS/3 ML VIAL SQ SCH ×4 (08:56→22:43)
--- NOTE | 2016-05-07 09:24 | Internal Med Progress Note ---
<Jose Gao - Last Filed: 05/07/16 14:11> Date of Encounter: 05/06/16 Time of Encounter: 08:30 - Assessment and plan (1) TIA (transient ischemic attack) Current Visit: Yes Status: Acute Assessment and plan: - Patient's < 1-hr temporary unresponsiveness on 05/06 is most likely TIA secondary to poor blood perfusion to brain. - CT head today found no acute intracranial abnormality. - Continue atorvastatin and aspirin. - Patient and his don't want invasive intervention. - Closely monitor with neuro check. Qualifiers: Transient cerebral ischemia type: unspecified Qualified Code(s): G45.9 - Transient cerebral ischemic attack, unspecified (2) Elevated troponin I level Current Visit: Yes Status: Resolved Assessment and plan: - Patient was transferred here for troponin 0.08 at [facility] inpatient. - Resolved as troponins remain negative (0.03 x 3 and then 0.04) during his stay here. - Last echo on 04/26/16 showed LVEF 50-55% with mild LV diastolic dysfunction. (3) CAD (coronary artery disease) Current Visit: Yes Status: Acute Assessment and plan: - S/p 3V CABG years ago. - Continue asa, plavix, beta jaden, Imdur, statin. Qualifiers: Coronary Disease-Associated Artery/Lesion type: [place] artery [place] vs. transplanted heart: [place] heart Associated angina: without angina Qualified Code(s): I25.10 - Atherosclerotic heart disease of [place] coronary artery without angina pectoris (4) COPD (chronic obstructive pulmonary disease) Current Visit: No Status: Chronic Assessment and plan: - Continue bronchodilator. Qualifiers: COPD type: emphysema Emphysema type: unspecified Qualified Code(s): J43.9 - Emphysema, unspecified (5) Type 2 diabetes mellitus with insulin therapy Current Visit: Yes Status: Acute Assessment and plan: - Continue insulin sliding scale and glucose monitoring. (6) Parkinsons disease Current Visit: Yes Status: Acute Assessment and plan: - Appears to be mild as patient's baseline before hospitalization is able to ambulate and feed himself independently. (7) DVT prophylaxis Current Visit: Yes Status: Acute Assessment and plan: - Continue SQ heparin. (8) Goals of care, counseling/discussion Current Visit: Yes Status: Acute Assessment and plan: - Their goals are to complete rehab and return home. They don't want any invasive intervention at this time. Patient is a DNRCC-A, DNI - Appreciate palliative care and forensic social worker assistance about placement after discharge.. - Subjective Interval history: No significant event noted overnight. Patient was seen and examined this morning. Patient is much more awake compared to yesterday. Patient denies chest pain, shortness of breath, nausea, vomiting, diarrhea, fever, chills. - Constitutional Vitals: Temp Pulse Resp BP Pulse Ox 98.2 F 73 16 117/62 95 05/07/16 07:09 05/07/16 07:09 05/07/16 07:09 05/07/16 07:09 05/07/16 07:09 General appearance: Present: cooperative, A&O X 1, pleasant, no acute distress, answers questions appropriately - Head Head exam: Present: atraumatic, normocephalic - Eye Eye exam: Present: PERRL, conjuntiva pink, sclera anicteric - Neck Neck exam general surgery: Present: supple, trachea midline. Absent: lymphadenopathy - Respiratory Respiratory exam: Present: CTAB. Absent: accessory muscle use, rales, rhonchi, wheezes - Cardiovascular Cardiovascular exam: Present: RRR, +S1, +S2. Absent: diastolic murmur, gallop, rubs, systolic murmur - GI/Abdominal GI/Abdominal exam: Present: normal bowel sounds, soft, no peritoneal signs. Absent: distended, tenderness - Extremities Exam Extremities exam: Present: warm, radial pulses palpable and symetrical. Absent : calf tenderness, cyanotic, pedal edema - Neurological Exam Neurological exam: Present: CN II-XII intact, no focal deficits. Absent: pronater drift, facial droop, speech deficit - Skin Skin exam: Present: dry, intact Internal Medicine: Result - Labs CBC & Chem 7: 05/07/16 05:08 05/07/16 06:42 Labs: Short CBC 05/07/16 Range/Units 05:08 WBC 6.8 (4.3-11.1) K/mcL Hgb 12.5 L (12.9-16.9) g/dL Hct 39.2 (37.5-50.1) % Plt Count 153 (140-400) K/mcL Neutrophils # 4.4 (1.6-8.9) K/mcL BMP 05/07/16 06:42 Sodium 143 Potassium 3.8 Chloride 112 H Carbon Dioxide 23 BUN 19 Creatinine 1.10 Glucose 156 H Calcium 8.4 L Cardiac Enzymes 05/06/16 Range/Units 12:43 Troponin I 0.04 H* (0-0.03) ng/mL - Impressions Impressions Head CT 05/06/16 13:52 IMPRESSION: No acute intracranial abnormality. Underlying atrophy with remote appearing infarct or perivascular space in left basal ganglia. D/ / Luis Horton MD / Luis Horton MD Interpreting Provider: Luis Horton MD Consult Discharge Plan - Plan Referrals: [facility] [Primary Care Provider] - <Charlie Torres P - Last Filed: 05/07/16 17:44> Date of Encounter: 05/06/16 - Constitutional Vitals: Temp Pulse Resp BP Pulse Ox 97.7 F 87 18 118/79 95 05/07/16 15:27 05/07/16 15:27 05/07/16 15:50 05/07/16 15:27 05/07/16 15:50 Internal Medicine: Result - Labs CBC & Chem 7: 05/07/16 05:08 05/07/16 06:42 Labs: Short CBC 05/07/16 Range/Units 05:08 WBC 6.8 (4.3-11.1) K/mcL Hgb 12.5 L (12.9-16.9) g/dL Hct 39.2 (37.5-50.1) % Plt Count 153 (140-400) K/mcL Neutrophils # 4.4 (1.6-8.9) K/mcL BMP 05/07/16 06:42 Sodium 143 Potassium 3.8 Chloride 112 H Carbon Dioxide 23 BUN 19 Creatinine 1.10 Glucose 156 H Calcium 8.4 L - Attending Attestation I examined this patient and my medical decision-making was reviewed with the AUTOMOTIVE SERVICE CASHIER/PA/Advanced Practice Nurse/Resident Physician. I agree with the documented findings, disposition and treatment plan as described except to the extent set forth below.
[2016-05-07] MEDS: Budesonide Neb 0.5 MG/2 ML IH SCH ×2 (11:00→22:43)
--- NOTE | 2016-05-07 13:37 | Electrocardiograph Report ---
[place] [address] Test Date: 2016-05-06 Pat Name: Sukhjinder Monzon Department: 111 Room: 2NE16 Gender: M Planning Aide: [place] : 1940 Requested By: Charlie Torres Order Number: [id number] Reading MD: Thor Jay MD Measurements Intervals [place] Rate: 95 P: [place]: 0 QRS: -1 QRSD: 114 T: 34 QT: 369 QTc: 422 Interpretive Statements SINUS RHYTHM WITH PVCS AND PACS Electronically Signed On 05-07-2016 13:35:49 EDT by Thor Jay MD
--- NOTE | 2016-05-07 13:51 | Event Note ---
Date of Encounter: 05/06/16 Time of Encounter: 13:49 Mr. Monzon is sitting in his chair with his spouse at his side. He denies needs and reports feeling "a lot better" when compared to yesterday. His spouse reports great improvement from yesterday. Goals of care are established and rn social work is following for discharge needs. Code status established. The palliative care team will sign off. Please re-consult if needed. Thank you.
[2016-05-07] MEDS: Melatonin 3 MG TABLET PO SCH (22:36)
[2016-05-08] MEDS: Ipratropium/Albuterol Neb 3 ML IH SCH ×4 (04:15→21:11)
[2016-05-08] MEDS: *HR* Heparin 5,000 UNIT/ML VIAL SQ SCH ×2 (06:39→17:00)
[2016-05-08] MEDS: Carbidopa/Levodopa 25/100 TABLET PO SCH ×4 (09:42→20:06)
[2016-05-08] MEDS: Aspirin 325 MG TABLET PO SCH (09:42)
[2016-05-08] MEDS: Insulin LISPRO 300 UNITS/3 ML VIAL SQ SCH ×4 (09:42→21:50)
[2016-05-08] MEDS: Isosorbide MONOnitrate (24 HR) 60 MG TAB.ER.24H PO SCH (09:42)
[2016-05-08] MEDS: Budesonide Neb 0.5 MG/2 ML IH SCH ×2 (11:06→21:10)
--- NOTE | 2016-05-08 14:34 | Internal Med Progress Note ---
<Jose Gao - Last Filed: 05/08/16 14:32> Date of Encounter: 05/06/16 Time of Encounter: 11:00 - Assessment and plan (1) TIA (transient ischemic attack) Current Visit: Yes Status: Acute Assessment and plan: - Patient's < 1-hr temporary unresponsiveness on 05/06 is most likely TIA secondary to poor blood perfusion to brain. - CT head today found no acute intracranial abnormality. - Continue atorvastatin and aspirin. - Patient and his don't want invasive intervention. - Closely monitor with neuro check. - Neurology consult as requested by [facility]. Qualifiers: Transient cerebral ischemia type: unspecified Qualified Code(s): G45.9 - Transient cerebral ischemic attack, unspecified (2) Elevated troponin I level Current Visit: Yes Status: Resolved Assessment and plan: - Patient was transferred here for troponin 0.08 at [facility] inpatient. - Resolved as troponins remain negative (0.03 x 3 and then 0.04) during his stay here. - Last echo on 04/26/16 showed LVEF 50-55% with mild LV diastolic dysfunction. - Cardiology consult as requested by [facility]. (3) CAD (coronary artery disease) Current Visit: Yes Status: Acute Assessment and plan: - S/p 3V CABG years ago. - Continue asa, plavix, beta jaden, Imdur, statin. Qualifiers: Coronary Disease-Associated Artery/Lesion type: [place] artery [place] vs. transplanted heart: [place] heart Associated angina: without angina Qualified Code(s): I25.10 - Atherosclerotic heart disease of [place] coronary artery without angina pectoris (4) COPD (chronic obstructive pulmonary disease) Current Visit: No Status: Chronic Assessment and plan: - Continue bronchodilator. Qualifiers: COPD type: emphysema Emphysema type: unspecified Qualified Code(s): J43.9 - Emphysema, unspecified (5) Type 2 diabetes mellitus with insulin therapy Current Visit: Yes Status: Acute Assessment and plan: - Continue insulin sliding scale and glucose monitoring. (6) Parkinsons disease Current Visit: Yes Status: Acute Assessment and plan: - Appears to be mild as patient's baseline before hospitalization is able to ambulate and feed himself independently. (7) DVT prophylaxis Current Visit: Yes Status: Acute Assessment and plan: - Continue SQ heparin. (8) Goals of care, counseling/discussion Current Visit: Yes Status: Acute Assessment and plan: - Patient and his family's goals are to complete rehab and eventually return home. They don't want any invasive intervention at this time. Patient is a DNRCC -A, DNI - Case was discussed with [facility] hospitalist Dr. Damon, who requests having cardiology and neurology consulted before transferring patient back to [facility], which is patient initial and primary care facility. - Subjective Interval history: No significant event noted overnight. Patient was seen and examined this morning. Patient is much more awake compared to yesterday. Patient denies chest pain, shortness of breath, nausea, vomiting, diarrhea, fever, chills, numbness/tingling, focal weakness. - Constitutional Vitals: Temp Pulse Resp BP Pulse Ox 97.4 F L 93 16 132/77 95 05/08/16 11:50 05/08/16 11:50 05/08/16 11:50 05/08/16 12:57 05/08/16 11:50 General appearance: Present: cooperative, A&O X 1, pleasant, no acute distress, answers questions appropriately - Head Head exam: Present: atraumatic, normocephalic - Eye Eye exam: Present: PERRL, conjuntiva pink, sclera anicteric - Neck Neck exam general surgery: Present: supple, trachea midline. Absent: lymphadenopathy - Respiratory Respiratory exam: Present: CTAB. Absent: accessory muscle use, rales, rhonchi, wheezes - Cardiovascular Cardiovascular exam: Present: RRR, +S1, +S2. Absent: diastolic murmur, gallop, rubs, systolic murmur - GI/Abdominal GI/Abdominal exam: Present: normal bowel sounds, soft, no peritoneal signs. Absent: distended, tenderness - Extremities Exam Extremities exam: Present: warm, radial pulses palpable and symetrical. Absent : calf tenderness, cyanotic, pedal edema - Neurological Exam Neurological exam: Present: CN II-XII intact, oriented X3, no focal deficits. Absent: pronater drift, facial droop, speech deficit - Skin Skin exam: Present: dry, intact. Absent: rash Internal Medicine: Result - Labs CBC & Chem 7: 05/07/16 05:08 05/07/16 06:42 Consult Discharge Plan - Plan Referrals: [facility],PCP [Primary Care Provider] - <Charlie Torres P - Last Filed: 05/08/16 17:04> Date of Encounter: 05/08/16 - Constitutional Vitals: Temp Pulse Resp BP Pulse Ox 98.5 F 72 15 145/73 95 05/08/16 15:33 05/08/16 15:33 05/08/16 15:57 05/08/16 15:33 05/08/16 15:57 Internal Medicine: Result - Labs CBC & Chem 7: 05/07/16 05:08 05/07/16 06:42 - Attending Attestation I examined this patient and my medical decision-making was reviewed with the PHARMACOVIGILANCE SPECIALIST/PA/Advanced Practice Nurse/Resident Physician. I agree with the documented findings, disposition and treatment plan as described except to the extent set forth below. [facility] recommended a neurology/cardiological opinion before transfer.
[2016-05-08] MEDS: *HR* HYDROcodone/Acet 5/325 mg TABLET PO PRN (14:40)
--- NOTE | 2016-05-08 15:08 | Neurology - Consult Note ---
Date of Encounter: 05/08/16 Time of Encounter: 15:05 Assessment and Plan (1) Parkinsons disease Current Visit: Yes Status: Acute Appears stable at present time on top of advanced dementia that could be part of his Parkinson spectrum. Transiently altered mental status ( reduced responsiveness likely secondary to encephalopathy, sleeping state which appears totally resolved. CT of head showed no acute changes. No further testing will be recommended at this time. Patient has had carotid artery duplex and other stroke work up recently. 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 He likely has MMSE score <10/30 therefore needing 24 hour supervision. Social work/placement care needed. History of Present Illness Chief complaint: Altered mental status HPI: Mr. Monzon is a 75 year old male with PMH significant for Parkinson's disease, dementia, HTN, CKD, CAD who is consulted regarding transiently reduced mental status while in the hospital. Patient was admitted to [facility] 05/05 due to symptoms of chest pain. During the hospital stay, the patient at one time was found to have reduced responsiveness lasting few hours in duration without any focal neurological deficits. He has been doing well in the last two days. Denies significant discomforts. Does have significant baseline dementia, with probably severe degree. Patient is fully awake now but does not know the year and where is he at now. Past Med Surg Social Fam HX - Past Medical History Medical history: CHF, COPD, coronary artery disease, diabetes, GERD, hyperlipidemia, hypertension, myocardial infarction, renal disease, TIA Psychiatric history: no psych history - Past Surgical History Surgical History: appendectomy, coronary bypass (CABG) - Social History Smoking Status: Never smoker Smokeless Tobacco Status: No Alcohol use: none Drug use: none - Family History Father Age: 65 Family Member Ethnicity: Non- Living Status: Age at : 65 Cause of : heart attack Hx Family Cardiac Disorders: Yes Hx Family Respiratory Disorders: No Hx Family Cancer: Yes (mother had uterine cancer) Hx Family GI Disorders: No Hx Family Genitourinary Disorders: No Hx Family Endocrine Disorder: Yes (diabetes) Hx Family Musculoskeletal Disorders: No Hx Family Neuromuscular Disorders: No Hx Family Neurologic Disorders: No Hx Family HEENT Disorders: No Hx Family Autoimmune Disorders: No Hx Family Reproductive Disorders: No Hx Family Psychosocial Disorders: No Mother Family Member Ethnicity: Non- Living Status: Hx Family Cardiac Disorders: No Hx Family Respiratory Disorders: No Hx Family Cancer: Yes (uterine) Hx Family GI Disorders: Yes (GERD) Hx Family Endocrine Disorder: No Hx Family Neuromuscular Disorders: No Hx Family Neurologic Disorders: No Hx Family HEENT Disorders: No Hx Family Autoimmune Disorders: No Medications and Allergies Carbidopa/Levodopa 25/100 [Sinemet 25/100] 0.5 tab PO QID 07/18/15 [History] Cholecalciferol (Vitamin D3) [Vitamin D3] 2,000 unit PO DAILY 07/18/15 [History] Lisinopril [Zestril] 5 mg PO DAILY 07/18/15 [History] Acetaminophen [Tylenol Arthritis] 650 mg PO Q6H PRN 04/26/16 [History] Loratadine [Allergy Relief] 10 mg PO DAILY PRN 04/26/16 [History] Psyllium [Metamucil Fiber Singles Packet] 1 packet PO DAILY 04/26/16 [History] Saxagliptin HCl [Onglyza] 2.5 mg PO DAILY 04/26/16 [History] Trihexyphenidyl [Artane] 2 mg PO QAM 04/26/16 [History] Aspirin 325 mg PO DAILY #30 tablet 04/27/16 [Rx] Clopidogrel Bisulfate [Plavix] 75 mg PO DAILY #30 tablet 04/27/16 [Rx] Budesonide 2 mg IH BID 05/05/16 [History] Carvedilol 12.5 mg PO BID 05/05/16 [History] Chlorhexidine Gluconate [Peridex] 15 ml MM BID 05/05/16 [History] Dextrose 5 % in Water [Dextrose 5%-Water IV Soln] 500 ml IV DAILY 05/05/16 [ History] Ferrous Sulfate 325 mg PO DAILY 05/05/16 [History] Guaifenesin [Tussin] 200 mg PO QID PRN 05/05/16 [History] Heparin 5,000 unit SQ Q12HR 05/05/16 [History] Insulin Human Regular [HumuLIN R] 2 - 10 unit SQ PRN PRN 05/05/16 [History] Ipratropium/Albuterol Neb [Duoneb] 3 ml IH Q6HR 05/05/16 [History] Isosorbide MONOnitrate [Isosorbide Mononitrate ER] 240 mg PO DAILY 05/05/16 [ History] LORazepam [Lorazepam] 0.5 mg IM Q6H PRN 05/05/16 [History] Melatonin [Melatin] 3 mg PO HS 05/05/16 [History] Omeprazole [PriLOSEC] 20 mg PO DAILY 05/05/16 [History] Tamsulosin [Flomax] 0.4 mg PO DAILY 05/05/16 [History] TraZODone 25 mg PO HS PRN 05/05/16 [History] Trihexyphenidyl [Artane] 1 mg PO BID 05/05/16 [History] Atorvastatin [Lipitor] 80 mg PO HS 05/06/16 [History] Allergies bupropion Allergy (Verified 07/18/15 22:27) See Comments finasteride Allergy (Verified 07/18/15 22:27) See Comments morphine Allergy (Verified 07/18/15 22:27) See Comments oxybutynin Allergy (Verified 07/18/15 22:27) See Comments Terazosin Allergy (Verified 07/18/15 22:27) See Comments tramadol Allergy (Verified 07/18/15 22:27) See Comments All Systems: A 10-system review of systems was performed and is negative for pertinent findings except as documented above in the HPI. Physical Examination - Vital Signs Vital Signs: Initial Vital Signs Temp Pulse Resp BP Pulse Ox 97.8 F 90 20 139/80 98 05/05/16 18:03 05/05/16 18:03 05/05/16 18:03 05/05/16 18:03 05/05/16 18:03 - Constitutional General appearance: comfortable, other (Patient has no acute discomforts, smile with questions and has good eye contact. ) - Neurologic Sensorimotor examination: intact (Grossly intact) Detailed motor examination: grossly full strength in all extremities (Has increased muscle tone and muscle rigidity. No rest tremors. Bradykinetic) Motor examination - right side: 5/5: deltoids, biceps, triceps, wrist flexion, wrist extension, drafter structural, hip flexors, tibialis Anterior, quadriceps, toe extension (EHL), plantarflexion Motor examination - left side: 5/5: deltoids, biceps, triceps, wrist flexion, wrist extension, hip flexors, drafter structural, quadriceps, tibialis Anterior, toe extension (EHL), plantarflexion Reflexes: Biceps: 2+, Triceps: 2+, Brachioradialis: 2+, Patella: 2+, Achilles: 2 + Mental Status Examination: awake, alert, follows commands appropriately, answers questions appropriately, no agnosia, no aphasia, no aproxia, makes eye contact, follows simple commands, demented (Patient does not know time place and MMSE is likley below 10/30) Cranial nerve examination: PERRL, EOMI, visual hood intact, corneal reflexes brisk symmetrically, sensory to face intact, mastication intact, no facial asymmetry is present, no dysarthria, hearing is intact symmetrically, soft palate elevates bilaterally upon phonation, gag reflex intact, flexes SCM and trapezius muscles symmetrically with full power, tongue protrudes midline, no atrophy or facial fasiculations present Results - Laboratory Findings CBC and BMP: 05/07/16 05:08 05/07/16 06:42 Abnormal lab findings: Abnormal lab results Hgb 12.5 g/dL (12.9-16.9) L 05/07/16 05:08 Immature Plt Fraction 6.2 % (1.1-6.1) H 05/06/16 01:20 Chloride 112 mEq/L (98-109) H 05/07/16 06:42 Glucose 156 mg/dL (70-99) H 05/07/16 06:42 POC Glucose 292 (58-89) H 05/08/16 11:46 Hemoglobin A1c 9.3 % (-5.6) H 05/06/16 01:20 Calculated Osmolality 301 (280-300) H 05/07/16 06:42 Calcium 8.4 mg/dL (8.6-10.8) L 05/07/16 06:42 Troponin I 0.04 ng/mL (0-0.03) H* 05/06/16 12:43 Consult Discharge Plan - Plan [facility]: [facility] [Primary Care Provider] -
[2016-05-08] MEDS: Melatonin 3 MG TABLET PO SCH (20:08)
[2016-05-08 23:26] LABS: BUN/Creatinine Ratio 20 (6-26); Blood Urea Nitrogen 22 mg/dL (8-26); Carbon Dioxide 22 mEq/L (19-29); Chloride 114 mEq/L (98-109); Glucose 101 mg/dL (70-99); Magnesium 2.2 mg/dL (1.6-2.6); Osmolality,Calculated 295 (280-300); Potassium 3.9 mEq/L (3.5-4.5); Sodium 141 mEq/L (136-145); eGFR For African Americans > 60 (> 60); eGFR For Non-African Americans > 60 (> 60)
[2016-05-09] MEDS: Ipratropium/Albuterol Neb 3 ML IH SCH ×4 (04:51→22:39)
[2016-05-09] MEDS: *HR* Heparin 5,000 UNIT/ML VIAL SQ SCH ×2 (05:54→19:33)
[2016-05-09] MEDS: *HR* HYDROcodone/Acet 5/325 mg TABLET PO PRN (06:14)
[2016-05-09 07:37] LABS: Basophils % 0.3 %; Eosinophils # 0.3 K/mcL (0.0-0.6); Eosinophils % 2.8 %; Hematocrit 43.1 % (37.5-50.1); Hemoglobin 13.8 g/dL (12.9-16.9); Immature Granulocytes % 0.8 % (0-4); Lymphocytes # 1.8 K/mcL (0.6-4.6); Lymphocytes % 18.5 %; Mean Corpuscular Hemoglobin 28.6 pg (28.0-33.3); Mean Corpuscular Volume 89.2 fL (83.0-100.0); Mean Platelet Volume 10.9 fL (9.4-12.4); Monocytes # 0.7 K/mcL (0.0-1.3); Monocytes % 6.8 %; Platelet Count 153 K/mcL (140-400); Red Blood Count 4.83 M/mcL (4.19-5.50); Red Cell Distribution Width 14.1 % (11.5-14.5); Segmented Neutrophils % 70.8 %
[2016-05-09 07:38] LABS: BUN/Creatinine Ratio 20 (6-26); Blood Urea Nitrogen 19 mg/dL (8-26); Calcium 8.6 mg/dL (8.6-10.8); Carbon Dioxide 18 mEq/L (19-29); Chloride 113 mEq/L (98-109); Glucose 150 mg/dL (70-99); Osmolality,Calculated 297 (280-300); Potassium 4.1 mEq/L (3.5-4.5); Sodium 141 mEq/L (136-145); eGFR For African Americans > 60 (> 60); eGFR For Non-African Americans > 60 (> 60)
[2016-05-09] MEDS: Aspirin 325 MG TABLET PO SCH (08:44)
[2016-05-09] MEDS: Isosorbide MONOnitrate (24 HR) 60 MG TAB.ER.24H PO SCH (08:44)
[2016-05-09] MEDS: Insulin LISPRO 300 UNITS/3 ML VIAL SQ SCH ×4 (08:44→20:44)
[2016-05-09] MEDS: Carbidopa/Levodopa 25/100 TABLET PO SCH ×4 (08:45→20:43)
--- NOTE | 2016-05-09 09:44 | Internal Med Progress Note ---
<Jose Gao - Last Filed: 05/09/16 10:19> Date of Encounter: 05/09/16 Time of Encounter: 09:15 - Assessment and plan (1) TIA (transient ischemic attack) Current Visit: Yes Status: Acute Assessment and plan: - Patient's < 1-hr temporary unresponsiveness on 05/06 is most likely TIA secondary to poor blood perfusion to brain. - CT head on 05/06 found no acute intracranial abnormality. - Patient has had carotid artery duplex and other stroke work up recently. - Continue atorvastatin and aspirin. - Patient and his don't want invasive intervention. - Neurology consult as requested by [facility]. No further testing will be recommended at this time per neurology - Closely monitor. Qualifiers: Transient cerebral ischemia type: unspecified Qualified Code(s): G45.9 - Transient cerebral ischemic attack, unspecified (2) Elevated troponin I level Current Visit: Yes Status: Resolved Assessment and plan: - Patient was transferred here for troponin 0.08 at [facility] inpatient. - Resolved as troponins remain negative (0.03 x 3 and then 0.04) during his stay here. - Last echo on 04/26/16 showed LVEF 50-55% with mild LV diastolic dysfunction. - Cardiology consulted as requested by [facility]. (3) CAD (coronary artery disease) Current Visit: Yes Status: Acute Assessment and plan: - S/p 3V CABG years ago. - Continue asa, plavix, beta jaden, Imdur, statin. Qualifiers: Coronary Disease-Associated Artery/Lesion type: [place] artery [place] vs. transplanted heart: [place] heart Associated angina: without angina Qualified Code(s): I25.10 - Atherosclerotic heart disease of [place] coronary artery without angina pectoris (4) COPD (chronic obstructive pulmonary disease) Current Visit: No Status: Chronic Assessment and plan: - Continue bronchodilator. Qualifiers: COPD type: emphysema Emphysema type: unspecified Qualified Code(s): J43.9 - Emphysema, unspecified (5) Type 2 diabetes mellitus with insulin therapy Current Visit: Yes Status: Acute Assessment and plan: - Continue insulin sliding scale and glucose monitoring. (6) Parkinsons disease Current Visit: Yes Status: Acute Assessment and plan: - Appears to be mild as patient's baseline before hospitalization is able to ambulate and feed himself independently. (7) DVT prophylaxis Current Visit: Yes Status: Acute Assessment and plan: - Continue SQ heparin. (8) Goals of care, counseling/discussion Current Visit: Yes Status: Acute Assessment and plan: - Patient and his family's goals are to complete rehab and eventually return home. They don't want any invasive intervention at this time. Patient is a DNRCC -A, DNI - Case was discussed with [facility] hospitalist Dr. Damon on 05/08/16, who requests having cardiology and neurology consulted before transferring patient back to [facility] , which is patient initial and primary care facility. - Subjective Interval history: No significant event noted overnight. Patient was seen and examined this morning. Patient reports doing okay and has no complaint. Patient denies chest pain, shortness of breath, nausea, vomiting, diarrhea, fever, chills, numbness/ tingling, focal weakness. - Constitutional Vitals: Temp Pulse Resp BP Pulse Ox 98.2 F 54 19 141/77 93 05/09/16 08:21 05/09/16 08:21 05/09/16 08:21 05/09/16 08:21 05/09/16 08:21 General appearance: Present: cooperative, A&O X 1, pleasant, no acute distress, answers questions appropriately - Head Head exam: Present: atraumatic, normocephalic - Eye Eye exam: Present: PERRL, conjuntiva pink, sclera anicteric - Neck Neck exam general surgery: Present: supple, trachea midline. Absent: lymphadenopathy - Respiratory Respiratory exam: Present: CTAB. Absent: accessory muscle use, rales, rhonchi, wheezes - Cardiovascular Cardiovascular exam: Present: RRR, +S1, +S2. Absent: diastolic murmur, gallop, rubs, systolic murmur - GI/Abdominal GI/Abdominal exam: Present: normal bowel sounds, soft, no peritoneal signs. Absent: distended, tenderness - Extremities Exam Extremities exam: Present: warm, radial pulses palpable and symetrical. Absent : calf tenderness, cyanotic, pedal edema - Neurological Exam Neurological exam: Present: CN II-XII intact, oriented X3, no focal deficits. Absent: pronater drift, facial droop, speech deficit - Skin Skin exam: Present: dry, intact. Absent: rash Internal Medicine: Result - Labs CBC & Chem 7: 05/09/16 06:33 05/09/16 06:33 Labs: Short CBC 05/09/16 Range/Units 06:33 WBC 9.9 (4.3-11.1) K/mcL Hgb 13.8 (12.9-16.9) g/dL Hct 43.1 (37.5-50.1) % Plt Count 153 (140-400) K/mcL Neutrophils # 7.0 (1.6-8.9) K/mcL [facility] 05/08/16 05/09/16 22:54 06:33 Sodium 141 141 Potassium 3.9 4.1 Chloride 114 H 113 H Carbon Dioxide 22 18 L BUN 22 19 Creatinine 1.08 0.97 Glucose 101 H 150 H Calcium 8.0 L 8.6 Consult Discharge Plan - Plan [facility]errals: [facility] [Primary Care Provider] - <Charlie Torres - Last Filed: 05/09/16 18:00> Date of Encounter: 05/09/16 - Constitutional Vitals: Temp Pulse Resp BP Pulse Ox 98.2 F 78 16 113/59 95 05/09/16 16:22 05/09/16 16:22 05/09/16 16:22 05/09/16 16:22 05/09/16 16:22 Internal Medicine: Result - Labs CBC & Chem 7: 05/09/16 06:33 05/09/16 06:33 Labs: Short CBC 05/09/16 Range/Units 06:33 WBC 9.9 (4.3-11.1) K/mcL Hgb 13.8 (12.9-16.9) g/dL Hct 43.1 (37.5-50.1) % Plt Count 153 (140-400) K/mcL Neutrophils # 7.0 (1.6-8.9) K/mcL [facility] 05/08/16 05/09/16 22:54 06:33 Sodium 141 141 Potassium 3.9 4.1 Chloride 114 H 113 H Carbon Dioxide 22 18 L BUN 22 19 Creatinine 1.08 0.97 Glucose 101 H 150 H Calcium 8.0 L 8.6 - Attending Attestation I examined this patient and my medical decision-making was reviewed with the CELL ATTENDANT/PA/Advanced Practice Nurse/Resident Physician. I agree with the documented findings, disposition and treatment plan as described except to the extent set forth below. Cardiology input appreciated. Possible transfer back to [facility] tomorrow
[2016-05-09] MEDS: Budesonide Neb 0.5 MG/2 ML IH SCH ×2 (10:30→22:39)
--- NOTE | 2016-05-09 14:00 | Cardiology Consult Note ---
<Anthony Perry - Last Filed: 05/09/16 14:28> Date of Encounter: 05/09/16 Time of Encounter: 13:30 Assessment and Plan (1) TIA (transient ischemic attack) Current Visit: Yes Status: Acute Per cardiology: -Probable TIA in patient with period of altered mental status. -Patient with known history of dementia and parkinsons. -Management per primary service and neurology. (CARLOS). Qualifiers: Transient cerebral ischemia type: unspecified Qualified Code(s): G45.9 - Transient cerebral ischemic attack, unspecified (2) Elevated troponin I level Current Visit: Yes Status: Resolved Per cardiology: -Elevated troponin of 0.08 at [facility]. -Troponin 0.03, 0.03, 0.03, and 0.04 at [facility]. -Troponins flat and adynamic in the setting of TIA. -Known history of CAD status post CABG. -On asa, plavix, statin, beta jaden, and yumi inhibitor. -ECG with underlying sinus rhythm with frequent PVCs. -Patient with altered mental status. -Family request no invasive testing. Of note, patient is DNR-CCA and DNI. -Do not suspect NSTEMI, suspect demand ischemia. No cardiac rehab warranted. -Will decrease ASA to 81mg po daily. -Discussed with family regarding further ischemic work up. Family agreeable to no further cardiac ischemic work up. -Cardiology will sign off and recommend patient follow up at [facility]. (CARLOS). Discussion w patient/family: The assessment and plan as outlined above was discussed with the patient and/or family members who expressed understanding and agreement. All questions were answered. Thank you for involving us in the care of your patient. Please call with any questions. Patient seen and examined with LE Pulliam Patient seen and examined with . History of Present Illness Consult date: 05/09/16 Requesting physician: Jose Gao Consult reason: positive troponin Chief complaint: altered mental status History of present illness: Mr. Monzon is a 75 year old male with a relevant past medical history of CHF, dementia, parkinson, COPD, CAD, DM, GERD, Hyperlipidemia, HTN, PA, renal disease , TIA, and CABG. Patient was at the [facility] when he had an episode of unresponsiveness. Patient was transferred to [facility]. Hospitalist team has been following patient and was preparing to discharge him back to the [facility]. According to hospitalist, [facility] requested that cardiology see patient for elevated troponin. According to family, patient never complained of chest pain. Difficult to obtain history from patient due to mental status. (CARLOS) Past Med Surg Social Fam HX - Past Medical History Source: old records reviewed, obtained from family Medical history: CHF, COPD, coronary artery disease, diabetes, GERD, hyperlipidemia, hypertension, myocardial infarction, renal disease, TIA Psychiatric history: no psych history - Past Surgical History Surgical History: appendectomy, coronary bypass (CABG) - Social History Smoking Status: Never smoker Smokeless Tobacco Status: No Alcohol use: none Drug use: none - Family History Father Age: 65 Family Member Ethnicity: Non- Living Status: Age at : 65 Cause of : heart attack Hx Family Cardiac Disorders: Yes Hx Family Respiratory Disorders: No Hx Family Cancer: Yes (mother had uterine cancer) Hx Family GI Disorders: No Hx Family Genitourinary Disorders: No Hx Family Endocrine Disorder: Yes (diabetes) Hx Family Musculoskeletal Disorders: No Hx Family Neuromuscular Disorders: No Hx Family Neurologic Disorders: No Hx Family HEENT Disorders: No Hx Family Autoimmune Disorders: No Hx Family Reproductive Disorders: No Hx Family Psychosocial Disorders: No Mother Family Member Ethnicity: Non- Living Status: Hx Family Cardiac Disorders: No Hx Family Respiratory Disorders: No Hx Family Cancer: Yes (uterine) Hx Family GI Disorders: Yes (GERD) Hx Family Endocrine Disorder: No Hx Family Neuromuscular Disorders: No Hx Family Neurologic Disorders: No Hx Family HEENT Disorders: No Hx Family Autoimmune Disorders: No Medications and Allergies Carbidopa/Levodopa 25/100 [Sinemet 25/100] 0.5 tab PO QID 07/18/15 [History] Cholecalciferol (Vitamin D3) [Vitamin D3] 2,000 unit PO DAILY 07/18/15 [History] Lisinopril [Zestril] 5 mg PO DAILY 07/18/15 [History] Acetaminophen [Tylenol Arthritis] 650 mg PO Q6H PRN 04/26/16 [History] Loratadine [Allergy Relief] 10 mg PO DAILY PRN 04/26/16 [History] Psyllium [Metamucil Fiber Singles Packet] 1 packet PO DAILY 04/26/16 [History] Saxagliptin HCl [Onglyza] 2.5 mg PO DAILY 04/26/16 [History] Trihexyphenidyl [Artane] 2 mg PO QAM 04/26/16 [History] Aspirin 325 mg PO DAILY #30 tablet 04/27/16 [Rx] Clopidogrel Bisulfate [Plavix] 75 mg PO DAILY #30 tablet 04/27/16 [Rx] Budesonide 2 mg IH BID 05/05/16 [History] Carvedilol 12.5 mg PO BID 05/05/16 [History] Chlorhexidine Gluconate [Peridex] 15 ml MM BID 05/05/16 [History] Dextrose 5 % in Water [Dextrose 5%-Water IV Soln] 500 ml IV DAILY 05/05/16 [ History] Ferrous Sulfate 325 mg PO DAILY 05/05/16 [History] Guaifenesin [Tussin] 200 mg PO QID PRN 05/05/16 [History] Heparin 5,000 unit SQ Q12HR 05/05/16 [History] Insulin Human Regular [HumuLIN R] 2 - 10 unit SQ PRN PRN 05/05/16 [History] Ipratropium/Albuterol Neb [Duoneb] 3 ml IH Q6HR 05/05/16 [History] Isosorbide MONOnitrate [Isosorbide Mononitrate ER] 240 mg PO DAILY 05/05/16 [ History] LORazepam [Lorazepam] 0.5 mg IM Q6H PRN 05/05/16 [History] Melatonin [Melatin] 3 mg PO HS 05/05/16 [History] Omeprazole [PriLOSEC] 20 mg PO DAILY 05/05/16 [History] Tamsulosin [Flomax] 0.4 mg PO DAILY 05/05/16 [History] TraZODone 25 mg PO HS PRN 05/05/16 [History] Trihexyphenidyl [Artane] 1 mg PO BID 05/05/16 [History] Atorvastatin [Lipitor] 80 mg PO HS 05/06/16 [History] Allergies bupropion Allergy (Verified 07/18/15 22:27) See Comments finasteride Allergy (Verified 07/18/15 22:27) See Comments morphine Allergy (Verified 07/18/15 22:27) See Comments oxybutynin Allergy (Verified 07/18/15 22:27) See Comments Terazosin Allergy (Verified 07/18/15 22:27) See Comments tramadol Allergy (Verified 07/18/15 22:27) See Comments ROS unobtainable: due to mental status All Systems Review: A 10-system review of systems was performed and is negative for pertinent findings except as documented above in the HPI. Physical Examination Vital Signs, Last 4 Hours Temp Pulse Resp BP Pulse Ox 05/09/16 10:56 98.0 F 77 16 111/74 95 05/09/16 10:32 16 127/83 99 General: Other (Awake. Aphasic. ) HEENT: Atraumatic, Normocephaly Neck: No JVD, Normal carotid pulses Cardiac: Other (Frequent irregular beats noted per auscultation. Systolic murmur noted. ) Lungs: Normal Breath Sounds, No Wheeze, Rales, Rhonchi Neuro: Other (ALert and awake. ) Abdomen: Soft Skin: No rashes noted on visualized skin Musculoskeletal: No Chest Wall Tenderness Extremities: No Clubbing, No Cyanosis, No Edema, Normal Pulses Results 05/09/16 06:33 05/09/16 06:33 Lab Results Active Medications Acetaminophen (Tylenol) 650 mg PO Q6HR PRN PRN Reason: Mild Pain (1-3) Stop: 11/04/16 22:19 Acetaminophen/Hydrocodone Bitart ([place] 5-325 Mg) 1 tab PO Q6HR PRN PRN Reason: Moderate Pain Stop: 11/07/16 14:32 Last Admin: 05/09/16 06:14 Dose: 1 tab Albuterol/Ipratropium (Duoneb) 3 ml IH [id number] JOSE MANUEL PRN Reason: Protocol Stop: 11/05/16 04:01 Last Admin: 05/09/16 10:30 Dose: 3 ml Aspirin (Aspirin) 325 mg PO DAILY JOSE MANUEL Stop: 11/05/16 09:01 Last Admin: 05/09/16 08:44 Dose: 325 mg Atorvastatin Calcium (Lipitor) 80 mg PO HS [facility] Stop: 11/05/16 15:07 Last Admin: 05/08/16 20:07 Dose: 80 mg Budesonide (Pulmicort Neb) 2 mg IH BIDR JOSE MANUEL Stop: 11/05/16 10:01 Last Admin: 05/09/16 10:30 Dose: 2 mg Carbidopa/Levodopa (Sinemet) 0.5 each PO QID JOSE MANUEL Stop: 11/04/16 22:01 Last Admin: 05/09/16 12:04 Dose: 0.5 each Carvedilol (Coreg) 12.5 mg PO BIDWM [facility] Stop: 11/05/16 08:01 Last Admin: 05/09/16 08:45 Dose: 12.5 mg Clopidogrel Bisulfate (Plavix) 75 mg PO DAILY [facility] Stop: 11/05/16 09:01 Last Admin: 05/09/16 08:45 Dose: 75 mg Dextrose/Water (Dextrose 50% (Syg)) 25 ml IVP AD PRN PRN Reason: Hypoglycemia Stop: 11/04/16 22:14 Glucagon (Glucagen) 1 mg IM ONCE PRN PRN Reason: Hypoglycemia Stop: 11/04/16 22:14 Glucose (Gluctose) 15 gm PO ONCE PRN PRN Reason: Hypoglycemia Stop: 11/04/16 22:14 Glucose (Gluctose) 30 gm PO ONCE PRN PRN Reason: Hypoglycemia Stop: 11/04/16 22:14 Heparin Sodium (Porcine) (Heparin) 5,000 unit SQ Q12HR [facility] Stop: 11/05/16 06:01 Last Admin: 05/09/16 05:54 Dose: Not Given Dextrose (Dextrose 5%) 1,000 mls @ 100 mls/hr IVC .Q10H PRN PRN Reason: HYPOGLYCEMIA Stop: 11/04/16 22:14 Insulin Human Lispro (Humalog) 0 units SQ TIDAC [facility] PRN Reason: Protocol Stop: 11/05/16 07:31 Last Admin: 05/09/16 12:02 Dose: 8 units Insulin Human Lispro (Humalog) 0 units SQ HS [facility] PRN Reason: Protocol Stop: 11/05/16 21:01 Last Admin: 05/08/16 21:50 Dose: Not Given Isosorbide Mononitrate (Imdur) 240 mg PO DAILY [facility] Stop: 11/05/16 09:01 Last Admin: 05/09/16 08:44 Dose: 240 mg Lisinopril (Zestril) 5 mg PO DAILY [facility] PRN Reason: Protocol Stop: 11/05/16 09:01 Last Admin: 05/09/16 08:45 Dose: 5 mg Lorazepam (Ativan) 0.5 mg IM Q6H PRN PRN Reason: Anxiety Melatonin (Melatonin) 3 mg PO HS [facility] Stop: 11/04/16 22:01 Last Admin: 05/08/16 20:08 Dose: 3 mg Naloxone HCl (Narcan) 0.4 mg IVP Q2MIN PRN PRN Reason: Opioid Reversal Stop: 11/04/16 22:19 Omeprazole (Prilosec) 20 mg PO 0630 JOSE MANUEL PRN Reason: Protocol Stop: 11/05/16 06:31 Last Admin: 05/09/16 05:54 Dose: Not Given Tamsulosin HCl (Flomax) 0.4 mg PO HS JOSE MANUEL PRN Reason: Protocol Stop: 11/05/16 21:01 Last Admin: 05/08/16 20:07 Dose: 0.4 mg Laboratory Tests 05/05/16 05/06/16 05/06/16 19:09 01:20 06:37 Hgb Creatinine Troponin I 0.03 0.03 0.03 05/06/16 05/09/16 05/09/16 12:43 06:33 06:33 Hgb 13.8 Creatinine 0.97 Troponin I 0.04 H* - Imaging and Cardiology Chest Xray: report reviewed Other Results: CT head report reviewed. - EKG Interpretation EKG results cardiology: personally reviewed (ECG with underlying sinus rhythm, HR 95. Frequent PVCs noted.), other (Telemetry reviewed with average HR 90, frequent PVCs. Occasional runs of non-sustained ventricular tachycardia noted.) Consult Discharge Plan - Plan [facility]errals: [facility] [Primary Care Provider] - <Danitza Linn - Last Filed: 05/09/16 14:47> Date of Encounter: 05/09/16 Assessment and Plan Discussion w patient/family: The assessment and plan as outlined above was discussed with the patient and/or family members who expressed understanding and agreement. All questions were answered. Thank you for involving us in the care of your patient. Please call with any questions. History of Present Illness History of present illness: Mr. Monzon is a 75 year old male All Systems Review: A 10-system review of systems was performed and is negative for pertinent findings except as documented above in the HPI. Physical Examination Vital Signs, Last 4 Hours Temp Pulse Resp BP Pulse Ox 05/09/16 10:56 98.0 F 77 16 111/74 95 Results 05/09/16 06:33 05/09/16 06:33 Lab Results 05/08/16 05/09/16 05/09/16 22:54 06:33 06:33 WBC 9.9 Hgb 13.8 Hct 43.1 Plt Count 153 Sodium 141 141 Potassium 3.9 4.1 Chloride 114 H 113 H Carbon Dioxide 22 18 L BUN 22 19 Creatinine 1.08 0.97 Glucose 101 H 150 H Calcium 8.0 L 8.6 Magnesium 2.2 - Attending Attestation I examined this patient and my medical decision-making was reviewed with the CHARTERED WEALTH MANAGER/PA/Advanced Practice Nurse/Resident Physician. I agree with the documented findings, disposition and treatment plan. Mr. Monzon has dementia and is unable to communicate. Per medical records he had a period of unresponsiveness thought secondary to a TIA. His troponin with us have been negative (0.03 followed by 0.03, then 0.03) x 3. A fourth troponin was borderline at 0.04. ECG demonstrates no acute findings. There is no clear indication of an acute coronary syndrome. Additionally, family does not want any invasive evaluation. Recommend continuing antiplatelet therapy, statin and BB. No further recommendations. We will sign off.
[2016-05-09] MEDS ORDERED: Aspirin 325 MG TABLET PO SCH (14:28)
[2016-05-09] MEDS: Melatonin 3 MG TABLET PO SCH (20:44)
[2016-05-10] MEDS: Ipratropium/Albuterol Neb 3 ML IH SCH ×4 (04:27→22:40)
[2016-05-10 04:32] LABS: BUN/Creatinine Ratio 24 (6-26); Blood Urea Nitrogen 28 mg/dL (8-26); Calcium 8.4 mg/dL (8.6-10.8); Carbon Dioxide 21 mEq/L (19-29); Chloride 113 mEq/L (98-109); Glucose 168 mg/dL (70-99); Osmolality,Calculated 303 (280-300); Potassium 4.3 mEq/L (3.5-4.5); Sodium 142 mEq/L (136-145); eGFR For African Americans > 60 (> 60); eGFR For Non-African Americans > 60 (> 60)
[2016-05-10] MEDS: *HR* Heparin 5,000 UNIT/ML VIAL SQ SCH ×2 (05:05→17:00)
[2016-05-10] MEDS: Insulin LISPRO 300 UNITS/3 ML VIAL SQ SCH ×4 (08:36→21:05)
[2016-05-10] MEDS: Aspirin Enteric Coated 81 MG Tablet PO SCH (08:37)
[2016-05-10] MEDS: Isosorbide MONOnitrate (24 HR) 60 MG TAB.ER.24H PO SCH (08:37)
[2016-05-10] MEDS: Carbidopa/Levodopa 25/100 TABLET PO SCH ×4 (08:37→21:05)
--- NOTE | 2016-05-10 09:25 | Discharge Summary ---
Addendum entered and electronically signed by Jose Gao DO 05/10/16 14:07: Medically clear, pending placement Original Note: <Jose Gao - Last Filed: 05/10/16 11:30> Date of Encounter: 05/10/16 Time of Encounter: 09:00 - Discharge Diagnosis (1) Elevated troponin I level Priority: Primary Status: Resolved (2) TIA (transient ischemic attack) Priority: Secondary Status: Acute Qualifiers: Transient cerebral ischemia type: unspecified Qualified Code(s): G45.9 - Transient cerebral ischemic attack, unspecified (3) CAD (coronary artery disease) Priority: Secondary Status: Acute Qualifiers: Coronary Disease-Associated Artery/Lesion type: solomon artery [place] vs. transplanted heart: solomon heart Associated angina: without angina Qualified Code(s): I25.10 - Atherosclerotic heart disease of solomon coronary artery without angina pectoris (4) COPD (chronic obstructive pulmonary disease) Priority: Secondary Status: Chronic Qualifiers: COPD type: emphysema Emphysema type: unspecified Qualified Code(s): J43.9 - Emphysema, unspecified (5) Type 2 diabetes mellitus with insulin therapy Priority: Secondary Status: Acute (6) Parkinsons disease Priority: Secondary Status: Acute - Discharge Medications Home Medications: Carbidopa/Levodopa 25/100 [Sinemet 25/100] 0.5 tab PO QID 07/18/15 [History] Cholecalciferol (Vitamin D3) [Vitamin D3] 2,000 unit PO DAILY 07/18/15 [History] Lisinopril [Zestril] 5 mg PO DAILY 07/18/15 [History] Acetaminophen [Tylenol Arthritis] 650 mg PO Q6H PRN 04/26/16 [History] Loratadine [Allergy Relief] 10 mg PO DAILY PRN 04/26/16 [History] Psyllium [Metamucil Fiber Singles Packet] 1 packet PO DAILY 04/26/16 [History] Saxagliptin HCl [Onglyza] 2.5 mg PO DAILY 04/26/16 [History] Trihexyphenidyl [Artane] 2 mg PO QAM 04/26/16 [History] Aspirin 325 mg PO DAILY #30 tablet 04/27/16 [Rx] Clopidogrel Bisulfate [Plavix] 75 mg PO DAILY #30 tablet 04/27/16 [Rx] Budesonide 2 mg IH BID 05/05/16 [History] Carvedilol 12.5 mg PO BID 05/05/16 [History] Chlorhexidine Gluconate [Peridex] 15 ml MM BID 05/05/16 [History] Dextrose 5 % in Water [Dextrose 5%-Water IV Soln] 500 ml IV DAILY 05/05/16 [ History] Ferrous Sulfate 325 mg PO DAILY 05/05/16 [History] Guaifenesin [Tussin] 200 mg PO QID PRN 05/05/16 [History] Heparin 5,000 unit SQ Q12HR 05/05/16 [History] Insulin Human Regular [HumuLIN R] 2 - 10 unit SQ PRN PRN 05/05/16 [History] Ipratropium/Albuterol Neb [Duoneb] 3 ml IH Q6HR 05/05/16 [History] Isosorbide MONOnitrate [Isosorbide Mononitrate ER] 240 mg PO DAILY 05/05/16 [ History] LORazepam [Lorazepam] 0.5 mg IM Q6H PRN 05/05/16 [History] Melatonin [Melatin] 3 mg PO HS 05/05/16 [History] Omeprazole [PriLOSEC] 20 mg PO DAILY 05/05/16 [History] Tamsulosin [Flomax] 0.4 mg PO DAILY 05/05/16 [History] TraZODone 25 mg PO HS PRN 05/05/16 [History] Trihexyphenidyl [Artane] 1 mg PO BID 05/05/16 [History] Atorvastatin [Lipitor] 80 mg PO HS 05/06/16 [History] Allergies/Adverse Reactions: Allergies bupropion Allergy (Verified 07/18/15 22:27) See Comments finasteride Allergy (Verified 07/18/15 22:27) See Comments morphine Allergy (Verified 07/18/15 22:27) See Comments oxybutynin Allergy (Verified 07/18/15 22:27) See Comments Terazosin Allergy (Verified 07/18/15 22:27) See Comments tramadol Allergy (Verified 07/18/15 22:27) See Comments Date of admission: 05/05/16 22:41 [facility] Consults: 05/06/16 13:04 Consult to Nutrition [CONS] Routine Comment: patient is not eating at home and losing alot of Consulting Provider: NUTRITION Reason for Dietary Consult: PO Supplementation Consult to Product Specialist [CONS] Routine Reason for SW Consult: is unable to care for him at home by herself he is falling and AMS 05/06/16 13:56 Consult to Palliative Care [CONS] Routine Comment: Consulting Provider: [facility] [place] 05/08/16 14:58 Consult to Neurology [CONS] Routine Consulting Provider: [facility] Reason for Consult: TIA Call Completed: Yes 05/09/16 09:39 Consult to Cardiology [CONS] Routine Comment: Consulting Provider: Card[facility] [place] Reason for Consult: Positive troponin Call Completed: Yes Discharging clinician: Jose Gao Anticipated date of discharge: 05/10/16 - Patient Status Disposition: Transfer [facility] Condition: Fair Functional capacity at discharge: uses cane/walker Overall status at discharge: patient is progressing back to baseline - Discharge Instructions Follow Up With: [facility] [Primary Care Provider] - - Diet and Activity Activity: as per physical therapy Diet: diabetic diet, low salt diet Hospital course: Mr. Monzon is a 75 year old male with PMH of CAD s/p CABG, mild dementia and Parkinson's disease. Patient was initially admitted to [facility] for stroke -like symptoms but found to have chest pain and elevated troponin 0.08 during his stay and transferred to [facility] on 05/05 for further evaluation and work-up. Patient reports no chest pain with troponin stable ( 0.03 x3 then 0.04) during his stay at [facility]. Patient was noted to have < 1 hr significantly reduced responsiveness on 05/06 AM but later returned to his baseline mental status. CT head on 05/06 found no acute intracranial abnormality. Patient is putting on aspirin and statin. The condition was discussed with patient and his and they don't want invasive intervention at this time. Neurology recommends no further testing given patient had carotid artery duplex and other stroke work up recently. Cardiology thinks the troponin elevation is most likely demand ischemic not NSTEMI and no further cardiac ischemic work. Patient will be transferred back to [facility] for further management including rehab. - Time Spent with Patient Total time spent providing and/or coordinating discharge services: Greater than 30 minutes - Constitutional Vitals: Temp Pulse Resp BP Pulse Ox 97.8 F 71 16 145/67 95 05/10/16 06:31 05/10/16 06:31 05/10/16 06:31 05/10/16 06:31 05/10/16 08:51 General appearance: Present: cooperative, A&O X 1, pleasant, no acute distress, answers questions appropriately - Head Head exam: Present: atraumatic, normocephalic - Eye Eye exam: Present: PERRL, conjuntiva pink, sclera anicteric Pupils: Present: PERRL - Neck Neck exam general surgery: Present: supple, trachea midline. Absent: lymphadenopathy - Respiratory Respiratory exam: Present: CTAB. Absent: accessory muscle use, rales, rhonchi, wheezes - Cardiovascular Cardiovascular exam: Present: RRR, +S1, +S2. Absent: diastolic murmur, gallop, rubs, systolic murmur - GI/Abdominal GI/Abdominal exam: Present: normal bowel sounds, soft, no peritoneal signs. Absent: distended, tenderness - Extremities Exam Extremities exam: Present: warm, radial pulses palpable and symetrical. Absent : calf tenderness, cyanotic, pedal edema - Neurological Exam Neurological exam: Present: CN II-XII intact, oriented X3, no focal deficits. Absent: pronater drift, facial droop, speech deficit - Skin Skin exam: Present: dry, intact <Melissa,Charlie P - Last Filed: 05/10/16 15:58> Date of Encounter: 05/10/16 Date of admission: 05/05/16 22:41 [facility] care physician: [facility] Consults: 05/06/16 13:04 Consult to Nutrition [CONS] Routine Comment: patient is not eating at home and losing alot of Consulting Provider: NUTRITION Reason for Dietary Consult: PO Supplementation Consult to Product Specialist [CONS] Routine Reason for SW Consult: is unable to care for him at home by herself he is falling and AMS 05/06/16 13:56 Consult to Palliative Care [CONS] Routine Comment: Consulting Provider: [facility] [place] 05/08/16 14:58 Consult to Neurology [CONS] Routine Consulting Provider: [facility] Reason for Consult: TIA Call Completed: Yes 05/09/16 09:39 Consult to Cardiology [CONS] Routine Comment: Consulting Provider: Card[facility] Reason for Consult: Positive troponin Call Completed: Yes Hospital course: Mr. Monzon is a 75 year old male - Time Spent with Patient Total time spent providing and/or coordinating discharge services: - Constitutional Vitals: Temp Pulse Resp BP Pulse Ox 98.1 F 85 16 143/76 96 05/10/16 15:07 05/10/16 15:07 05/10/16 15:47 05/10/16 15:47 05/10/16 15:47 - Attending Attestation I examined this patient and my medical decision-making was reviewed with the APPRAISER AUDITOR/PA/Advanced Practice Nurse/Resident Physician. I agree with the documented findings, disposition and treatment plan as described except to the extent set forth below. Patient was supposed to be transferred to NH facility on Wednesday. NH facility recommended cardiology consult/neurologic consult. Both cardiology/neurology consults were done. Patient is medically clear, pending placement.
[2016-05-10] MEDS: Budesonide Neb 0.5 MG/2 ML IH SCH (10:30)
[2016-05-10] MEDS: Melatonin 3 MG TABLET PO SCH (21:05)
[2016-05-11] MEDS: Ipratropium/Albuterol Neb 3 ML IH SCH ×2 (04:48→09:16)
[2016-05-11] MEDS: *HR* Heparin 5,000 UNIT/ML VIAL SQ SCH (05:17)
[2016-05-11] MEDS: Insulin LISPRO 300 UNITS/3 ML VIAL SQ SCH ×2 (07:43→11:43)
[2016-05-11] MEDS: Aspirin Enteric Coated 81 MG Tablet PO SCH (07:44)
[2016-05-11] MEDS: Carbidopa/Levodopa 25/100 TABLET PO SCH ×2 (07:44→13:11)
[2016-05-11] MEDS: Isosorbide MONOnitrate (24 HR) 60 MG TAB.ER.24H PO SCH (07:44)
[2016-05-11 14:50] VITALS: BP 131/68
--- NOTE | 2016-05-11 15:22 | Physician Discharge Referral ---
ExtendedCare Referral Info Transfer To: [facility] - Diagnosis (1) Chest pain Priority: Primary Status: Acute (2) TIA (transient ischemic attack) Priority: Primary Status: Acute (3) COPD (chronic obstructive pulmonary disease) Priority: Primary Status: Chronic (4) CKD (chronic kidney disease) Priority: Secondary Status: Chronic (5) HTN (hypertension) Priority: Secondary Status: Chronic (6) Hx of CABG Priority: Secondary Status: Chronic (7) Type 2 diabetes mellitus with insulin therapy Priority: Secondary Status: Acute - Transfer Medications Home Medications: Carbidopa/Levodopa 25/100 [Sinemet 25/100] 0.5 tab PO QID 07/18/15 [History] Cholecalciferol (Vitamin D3) [Vitamin D3] 2,000 unit PO DAILY 07/18/15 [History] Lisinopril [Zestril] 5 mg PO DAILY 07/18/15 [History] Acetaminophen [Tylenol Arthritis] 650 mg PO Q6H PRN 04/26/16 [History] Loratadine [Allergy Relief] 10 mg PO DAILY PRN 04/26/16 [History] Psyllium [Metamucil Fiber Singles Packet] 1 packet PO DAILY 04/26/16 [History] Saxagliptin HCl [Onglyza] 2.5 mg PO DAILY 04/26/16 [History] Trihexyphenidyl [Artane] 2 mg PO QAM 04/26/16 [History] Aspirin 325 mg PO DAILY #30 tablet 04/27/16 [Rx] Clopidogrel Bisulfate [Plavix] 75 mg PO DAILY #30 tablet 04/27/16 [Rx] Budesonide 2 mg IH BID 05/05/16 [History] Carvedilol 12.5 mg PO BID 05/05/16 [History] Chlorhexidine Gluconate [Peridex] 15 ml MM BID 05/05/16 [History] Dextrose 5 % in Water [Dextrose 5%-Water IV Soln] 500 ml IV DAILY 05/05/16 [ History] Ferrous Sulfate 325 mg PO DAILY 05/05/16 [History] Guaifenesin [Tussin] 200 mg PO QID PRN 05/05/16 [History] Heparin 5,000 unit SQ Q12HR 05/05/16 [History] Insulin Human Regular [HumuLIN R] 2 - 10 unit SQ PRN PRN 05/05/16 [History] Ipratropium/Albuterol Neb [Duoneb] 3 ml IH Q6HR 05/05/16 [History] Isosorbide MONOnitrate [Isosorbide Mononitrate ER] 240 mg PO DAILY 05/05/16 [ History] LORazepam [Lorazepam] 0.5 mg IM Q6H PRN 05/05/16 [History] Melatonin [Melatin] 3 mg PO HS 05/05/16 [History] Omeprazole [PriLOSEC] 20 mg PO DAILY 05/05/16 [History] Tamsulosin [Flomax] 0.4 mg PO DAILY 05/05/16 [History] TraZODone 25 mg PO HS PRN 05/05/16 [History] Trihexyphenidyl [Artane] 1 mg PO BID 05/05/16 [History] Atorvastatin [Lipitor] 80 mg PO HS 05/06/16 [History] Allergies/Adverse Reactions: Allergies bupropion Allergy (Verified 07/18/15 22:27) See Comments finasteride Allergy (Verified 07/18/15 22:27) See Comments morphine Allergy (Verified 07/18/15 22:27) See Comments oxybutynin Allergy (Verified 07/18/15 22:27) See Comments Terazosin Allergy (Verified 07/18/15 22:27) See Comments tramadol Allergy (Verified 07/18/15 22:27) See Comments - Respiratory Orders Smoking Cessation: Smoking cessation has been advised. For more information, call the [place] Tobacco Quit Line at 5-679-JCTN-NOW. - Advance Directives Code Status: DNR-Arrest/Don't Intubate - Rehabiliation Orders Rehab Potential: Good Rehab Orders: Evaluation for Physical Therapy, Evaluation for Occupational Therapy - Treatments Skin tear care topically daily PRN per policy - Diet Orders House Supplement per Dietary: diabetic diet CERTIFICATION: I certify that the transfer of the above named patient to an Extended Care Facility is necessary for the continuing treatment of the diagnosis listed. The above information is true and accurate reflection of patient's current condition. Confidential - Redisclosure prohibited without a patient's written consent.
== END 2016-05-11 15:36 | DRG 69 ==
LOC: 2NENU 18:02 → EMEROO 18:02 → 2NENU 20:48
PROVIDERS: ADMIT Internal Medicine; ATTEND Internal Medicine